=== PATIENT | male | born 1965 | race Caucasian/White ===

== ENCOUNTER 2018-04-10 09:45 | Emergency (ER) | payer OTHER, SELFPAY ==
[2018-04-10 09:49] VITALS: BP 126/75; PULSE 65; RESP 18; O2SAT 98
--- NOTE | 2018-04-10 10:10 | ED.ABDPAIN ---
HPI - Abdominal Pain General Chief Complaint: Abdominal Pain Stated Complaint: PRESSURE ON RECTUM,NUMBNESS ON LEGS Time Seen by Provider: 04/10/18 10:10 Source: patient Mode of arrival: wheelchair Limitations: no limitations History of Present Illness HPI narrative: Patient is a 52-year-old male with a C6 paraplegia here for evaluation of pain and pressure around his rectum. He states this has been going on for the past couple days. He states that a couple days ago he did have an episode of constipation for which he increased his senna and Colace. He does require daily manual disimpaction done by his for bowel regimen. He states that he does have some feeling in his lower extremities. 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 He does have a Holden catheter in place. Does have some vague lower abdominal pain. Did have a ?normal? bowel movement this morning. Related Data Home Medications Medication Instructions Recorded Confirmed Probiotic 1 cap PO BEDTIME 04/10/18 04/10/18 Vitamin C 1 tab PO QNOON 04/10/18 04/10/18 Vitamin D3 1 cap PO QNOON 04/10/18 04/10/18 acetaminophen 1 - 3 tab PO PRN PRN 04/10/18 04/10/18 bisacodyl 2 tab PO BEDTIME 04/10/18 04/10/18 cranberry 1 cap PO TID 04/10/18 04/10/18 docusate sodium 250 mg PO BID 04/10/18 04/10/18 furosemide 20 mg PO BID 04/10/18 04/10/18 ibuprofen [Advil] 200 mg PO Q4-6H PRN 04/10/18 04/10/18 sennosides [senna] 1 tab PO BID 04/10/18 04/10/18 Previous Rx's Medication Instructions Recorded hydrocodone-acetaminophen [Houston] 1 tab PO Q4-6H PRN #7 tab 04/10/18 sucralfate 2 gram MT BID 10 Days #400 ml 04/10/18 Allergies Allergy/AdvReac Type Severity Reaction Status Date / Time No Known Drug Allergies Allergy Verified 04/10/18 09:56 Review of Systems Constitutional Denies fever(s) Cardiovascular Denies chest pain and Denies dyspnea Respiratory Denies dyspnea Gastrointestinal Gastrointestinal: Reports abdominal pain, Reports change in bowel habits and Denies nausea Genitourinary Comments: Holden catheter in place no changes from baseline Musculoskeletal Comments: No changes from his baseline musculoskeletal Integumentary/Breasts Denies rash Neurologic Comments: No changes from baseline neurologic deficiencies PFSH Medical History Cervical vertebral fusion (Acute) Paraplegia (Acute) Social History Smoking Status: Never smoker Comment: Past surgical history consistent with cervical fusion Exam Initial Vital Signs Initial Vital Signs: Vital Signs Pulse Rate 65 04/10/18 09:49 Respiratory Rate 18 04/10/18 09:49 Blood Pressure 126/75 04/10/18 09:49 Pulse Oximetry 98 04/10/18 09:49 Const General: comfortable, well developed and No acute distress Orientation: alert, awake and oriented x3 HENMT Head: normal to inspection and normocephalic Resp Effort & Inspection: normal respiratory effort Cardio Rate: regular rate GI Inspection: non-distended Palpation: soft, No firm and No tender Rectal Exam: abnormal sphincter tone (Decreased sphincter tone), No fecal impaction and heme negative stool Skin Rashes: no rashes Neuro Other: C6 paraplegia. No movement of bilateral lower extremities. He is able to move his upper extremities. This is all unchanged from his baseline neurologic status Extrem Other: Unable to move lower extremities. No gross deformities consistent with fractures Psych Appearance: grossly normal and well kempt Course Orders Ordered: ED Orders 04/10/18 11:02 CT abdomen pelvis w con Stat 04/10/18 11:05 Complete Blood Count AUTO DIFF Stat Comprehensive Metabolic Panel Stat Lipase Stat 04/10/18 11:15 Urine Culture Stat Urine Microscopic Stat Discontinued Medications Hydrocodone Bitart/Acetaminophen ([place] 5/325) 1 tab PO NOW ONE Stop: 04/10/18 13:12 Last Admin: 04/10/18 13:45 Dose: 1 tab Sodium Chloride (Normal Saline 0.9%) 1,000 mls @ 1,000 mls/hr IV BOLUS ONE Stop: 04/10/18 11:30 Last Infusion: 04/10/18 12:51 Dose: 0 mls/hr Admin: 04/10/18 11:32 Dose: 1,000 mls/hr Vital Signs - 8 hr 04/10/18 11:32 04/10/18 14:12 Pulse Rate 60 60 Respiratory Rate 14 14 Blood Pressure [Left Wrist] 135/78 135/92 H Pulse Oximetry 96 97 MDM - Abdominal Pain Lab Data Attestation: I reviewed the patient's lab results. Result diagrams: 04/10/18 11:05 04/10/18 11:05 Lab Results 04/10/18 04/10/18 04/10/18 Range/Units 11:05 11:05 11:15 WBC 7.8 (4.5-11.0) X10^3/uL RBC 5.22 (4.5-5.9) X10^6/uL Hgb 15.8 (13.5-17.5) g/dL Hct 44.9 (41-53) % MCV 85.9 (80-100) fL MCH 30.2 (26-34) PG MCHC 35.2 (30-36) % RDW 14.0 (11.6-14.8) % Plt Count 176 (150-400) X10^3/uL Neut % (Auto) 62.6 (50-75) % Lymph % (Auto) 27.6 (25-40) % Hernando % (Auto) 8.1 (3-14) % Eos % (Auto) 1.2 L (2-4) % Baso % (Auto) 0.5 (0-2) % Neut # (Auto) 4900 (8970-0164) /uL Sodium 143 (137-145) mmol/L Potassium 4.1 (3.4-5.1) mmol/L Chloride 106 (98-107) mmol/L Carbon Dioxide 27 (22-32) mmol/L BUN 10 (9-20) mg/dL Creatinine 0.50 L (0.66-1.25) mg/dL Estimated GFR > 60.0 (>60) mL/min BUN/Creatinine Ratio 20.0 (6-22) Glucose 105 H (70-100) mg/dL Calcium 9.1 (8.4-10.2) mg/dL Total Bilirubin 0.5 (0.2-1.3) mg/dL AST 23 (17-59) IU/L ALT 31 (21-72) IU/L Alkaline Phosphatase 55 (38-126) U/L Total Protein 6.8 (6.3-8.2) g/dL Albumin 4.1 (3.5-5.0) g/dL Globulin 2.7 (1.7-4.1) g/dL Albumin/Globulin Ratio 1.5 (1.0-2.8) Lipase 60 (23-300) U/L Urine RBC 1-5/hpf (0-5/HPF) Urine WBC 5-10/hpf H (0-5/HPF) Ur Squamous Epith Cells None seen Urine Bacteria Many (>30) H (None) Ur Culture Indicated? Specimen cultured Micro UA Comment Not Reportable Point of care testing: Urine Dip Bedside Urine Glucose Negative Bedside Urine Bilirubin - Negative Bedside Urine Ketone - Negative Urine Specific Ferdinand 1.015 Bedside Urine Occult Blood +/- Bedside Urine pH 6.5 Bedside Urine Protein - Negative Bedside Urine Urobilinogen - Negative Bedside Urine Nitrite + Positive Bedside Urine Leukocytes +++ [address] scan - abdomen: Radiologist's impression: PROCEDURE: CT ABDOMEN PELVIS W CON INDICATIONS: ABD pain TECHNIQUE: After the administration of intravenous contrast, 5 mm thick sections acquired from the diaphragm to the symphysis. 5 mm coronal and sagittal reformats were acquired. For radiation dose reduction, the following was used: automated exposure control, adjustment of mA and/or kV according to patient size. COMPARISON: None. FINDINGS: Image quality: Excellent. ABDOMEN: Lung bases: Lung bases are clear. Heart size is mildly enlarged. Solid organs: Liver is normal in size and enhancement. Diffuse fatty infiltration of the liver. Gallbladder is within normal limits. Biliary system is non dilated. Pancreas enhances normally. Partial fatty infiltration the liver is noted. Spleen is normal in size and enhancement. No adrenal nodules. Kidneys demonstrate normal size and enhancement, without hydronephrosis. Mild right perinephric stranding noted. Large 2.5 cm right renal cyst is noted which has a focal coarse calcification along its inferior margin (Bosniak 2F). There is a 5.9 cm simple right peripelvic cyst (Bosniak 1). Peritoneum and bowel: Bowel loops demonstrate normal caliber. Mild circumferential wall thickening involving the rectum. There is mild stranding in the perirectal fat. A few scattered colonic diverticuli are noted without evidence of diverticulitis. No free fluid or air. The appendix is not definitely visualized, however, no free fluid or inflammatory changes are noted adjacent to the cecum. Nodes and vessels: No retroperitoneal or mesenteric adenopathy by size criteria. Aorta and inferior vena cava are normal in size. Miscellaneous: No ventral hernias. PELVIS: Genitourinary: Bladder wall thickness is normal. Holden catheter noted in the basal bladder. Miscellaneous: No inguinal hernias or adenopathy. Bones: No suspicious bony lesions. Large osseous excrescences ON the anterior margin of the left acetabulum and the anterior margin of the proximal left femur possibly related to remote trauma. Fixation hardware noted in the thoracic spine. No vertebral body compression fractures. Spine degenerative disc disease and facet arthropathy. IMPRESSION: 1. Mild circumferential wall thickening involving the rectum with mild adjacent perirectal fat stranding compatible with mild proctitis which be secondary to infectious or neoplastic etiologies. Recommend correlation with physical findings. 2. Bosniak 2F 10.5 cm right renal cyst. Recommend urology consultation. 3. Mild right perinephric stranding. Finding is nonspecific, but can be related to urinary tract infection. Please correlate with clinical and urinalysis today. 4. Colonic diverticulosis without evidence of diverticulitis. 5. No dilated loops of bowel. 6. No free intraperitoneal fluid or air. Dictated by: Sherley Wallace MD, PhD on 04/10/2018 at 11:12 Approved by: Sherley Wallace MD, PhD on 04/10/2018 at 11:25 [facility] Narrative Medical decision making narrative: Difficulty obtaining a good physical exam secondary to his baseline neurologic status. His CT scan of his abdomen does have some concern for a proctitis. This does fit with his symptoms of pressure around his rectum. This could have been caused by the daily manual bowel regimens needed associated with the constipation issues he had a couple days ago. He has an indwelling Holden catheter. Urinalysis is somewhat concerning for urinary tract infection however will hold on any antibiotics for now wait for urine culture to return. Will send patient home with enemas to treat the proctitis. I have some concern that he may not be able to hold the enemas in place given his neurologic status and his decreased rectal tone. I did discuss this with the patient and his . Patient was instructed to call his primary care doctor for follow-up. If his urine culture does come back positive would consider antibiotics after sensitivity report comes back. Patient were given return precautions. They both expressed understanding and agreement with this plan. Discharge Plan Departure Patient Disposition: Home Clinical Impression: Proctitis Discharge Date/Time: 04/10/18 14:49 Interventions: ED Discharge Assessment Last Done: 10/30/18 14:45 Instructions: Constipation Activity Restrictions/Additional Instructions: recommend that you take the Tylenol and Motrin at home for any discomfort. Use the pain medications as needed for breakthrough pain. you will need to buy a Fleet's enema [id number]. Empty all of the medicine out of this and use the bottle to administer the medication that she were given a prescription for today. The pharmacy can call us here at [facility] at [phone] if they have questions about the prescription. Prescriptions: New hydrocodone-acetaminophen [[place]] 5-325 mg tablet 1 tab PO Q4-6H PRN (Reason: pain) Qty: 7 RF: 0 sucralfate 100 mg/mL suspension 2 gram MT BID 10 Days Qty: 400 RF: 0 No Action furosemide 40 mg tablet 20 mg PO BID RF: 0 sennosides [senna] 8.6 mg Tablet 1 tab PO BID RF: 0 acetaminophen 500 mg Tablet 1 - 3 tab PO PRN PRN (Reason: pain) RF: 0 ibuprofen [Advil] 200 mg Tablet 200 mg PO Q4-6H PRN (Reason: pain) RF: 0 bisacodyl 5 mg tablet,delayed release (DR/EC) 2 tab PO BEDTIME RF: 0 docusate sodium 250 mg Capsule 250 mg PO BID RF: 0 Probiotic 1 cap PO BEDTIME RF: 0 Vitamin C 1 tab PO QNOON RF: 0 Vitamin D3 1 cap PO QNOON RF: 0 cranberry 1 cap PO TID RF: 0
--- NOTE | 2018-04-10 11:02 | DI.CT.S_ITS ---
PROCEDURE: CT ABDOMEN PELVIS W CON INDICATIONS: ABD pain TECHNIQUE: After the administration of intravenous contrast, 5 mm thick sections acquired from the diaphragm to the symphysis. 5 mm coronal and sagittal reformats were acquired. For radiation dose reduction, the following was used: automated exposure control, adjustment of mA and/or kV according to patient size. COMPARISON: None. FINDINGS: Image quality: Excellent. ABDOMEN: Lung bases: Lung bases are clear. Heart size is mildly enlarged. Solid organs: Liver is normal in size and enhancement. Diffuse fatty infiltration of the liver. Gallbladder is within normal limits. Biliary system is non dilated. Pancreas enhances normally. Partial fatty infiltration the liver is noted. Spleen is normal in size and enhancement. No adrenal nodules. Kidneys demonstrate normal size and enhancement, without hydronephrosis. Mild right perinephric stranding noted. Large 2.5 cm right renal cyst is noted which has a focal coarse calcification along its inferior margin (Bosniak 2F). There is a 5.9 cm simple right peripelvic cyst (Bosniak 1). Peritoneum and bowel: Bowel loops demonstrate normal caliber. Mild circumferential wall thickening involving the rectum. There is mild stranding in the perirectal fat. A few scattered colonic diverticuli are noted without evidence of diverticulitis. No free fluid or air. The appendix is not definitely visualized, however, no free fluid or inflammatory changes are noted adjacent to the cecum. Nodes and vessels: No retroperitoneal or mesenteric adenopathy by size criteria. Aorta and inferior vena cava are normal in size. Miscellaneous: No ventral hernias. PELVIS: Genitourinary: Bladder wall thickness is normal. Holden catheter noted in the basal bladder. Miscellaneous: No inguinal hernias or adenopathy. Bones: No suspicious bony lesions. Large osseous excrescences ON the anterior margin of the left acetabulum and the anterior margin of the proximal left femur possibly related to remote trauma. Fixation hardware noted in the thoracic spine. No vertebral body compression fractures. Spine degenerative disc disease and facet arthropathy. IMPRESSION: 1. Mild circumferential wall thickening involving the rectum with mild adjacent perirectal fat stranding compatible with mild proctitis which be secondary to infectious or neoplastic etiologies. Recommend correlation with physical findings. 2. Bosniak 2F 10.5 cm right renal cyst. Recommend urology consultation. 3. Mild right perinephric stranding. Finding is nonspecific, but can be related to urinary tract infection. Please correlate with clinical and urinalysis today. 4. Colonic diverticulosis without evidence of diverticulitis. 5. No dilated loops of bowel. 6. No free intraperitoneal fluid or air. Dictated by: Sherley Wallace MD, PhD on 04/10/2018 at 11:12 Approved by: Sherley Wallace MD, PhD on 04/10/2018 at 11:25
[2018-04-10 11:21] LABS: Add Manual Diff / Slide Review NO; Basophils Percent Auto 0.5 % (0-2); Eosinophils Percent Auto 1.2 % (2-4); Hematocrit 44.9 % (41-53); Hemoglobin 15.8 g/dL (13.5-17.5); Lymphocytes Percent Auto 27.6 % (25-40); Mean Corpuscular HGB Conc 35.2 % (30-36); Mean Corpuscular Hemoglobin 30.2 PG (26-34); Mean Corpuscular Volume 85.9 fL (80-100); Monocytes Percent Auto 8.1 % (3-14); Neutrophils Absolute Auto 4900 /uL (3000-5900); Neutrophils Percent Auto 62.6 % (50-75); Platelet Count 176 X10^3/uL (150-400); Red Blood Cell Count 5.22 X10^6/uL (4.5-5.9); White Blood Cell Count 7.8 X10^3/uL (4.5-11.0)
[2018-04-10 11:32] VITALS: BP 135/78; PULSE 60; RESP 14; O2SAT 96
[2018-04-10] MEDS: SODIUM CHLORIDE 0.9% 1,000 ML 1000 ML IV (11:32)
[2018-04-10 11:33] LABS: Alanine Aminotransferase 31 IU/L (21-72); Albumin 4.1 g/dL (3.5-5.0); Albumin Globulin Ratio 1.5 (1.0-2.8); Alkaline Phosphatase 55 U/L (38-126); Aspartate Aminotransferase 23 IU/L (17-59); Bilirubin Total 0.5 mg/dL (0.2-1.3); Blood Urea Nitrogen 10 mg/dL (9-20); Calcium 9.1 mg/dL (8.4-10.2); Carbon Dioxide 27 mmol/L (22-32); Chloride 106 mmol/L (98-107); Estimated Glomerular Filt Rate > 60.0 mL/min (>60); Globulin 2.7 g/dL (1.7-4.1); Glucose 105 mg/dL (70-100); HEMOLYSIS < 15 (0-50); Lipase 60 U/L (23-300); Potassium 4.1 mmol/L (3.4-5.1); Sodium 143 mmol/L (137-145); Total Protein 6.8 g/dL (6.3-8.2)
[2018-04-10 11:34] LABS: Bacteria Urine Many (>30); RBC Urine 1-5/HPF (0-5/HPF); Squamous Epithelial Cell Urine None Seen; WBC Urine 5-10/HPF (0-5/HPF)
[2018-04-10 11:35] LABS: Culture Indicated Urine Specimen Cultured
[2018-04-10] MEDS: HYDROCODONE/ACET 5/325 TABLET 1 TAB PO (13:45)
[2018-04-10 14:12] VITALS: BP 135/92; PULSE 60; RESP 14; O2SAT 97
--- NOTE | 2018-04-13 19:58 | PC.NURSE ---
called pt to provide prescription. cipro 500mg bid po for [address] Katie antonio.
== END 2018-04-10 14:49 | disposition home or self-care (01) ==
PROVIDERS: Emergency Provider Emergency Medicine; Family Provider Physical Medicine & Rehabilitation Spinal Cord Injury Medicine; PCP Physical Medicine & Rehabilitation Spinal Cord Injury Medicine
DX: K62.89 Other specified diseases of anus and rectum (principal)
CPT/HCPCS: 74177; 80053; 81003; 81015; 83690; 85025; 87077; 87086; 87186; 96360; 99283; 99285; Q9967

== ENCOUNTER 2019-11-06 09:46 | Emergency (ER) | payer OTHER, SELFPAY ==
[2019-11-06] VITALS (14 sets, daily range): BP systolic 92–157; BP diastolic 54–87; PULSE 60–73; RESP 12–20; TEMP 36.5; O2SAT 92–98
--- NOTE | 2019-11-06 09:59 | DI.RAD.S_ITS ---
PROCEDURE: XR CHEST 1V INDICATIONS: quadriplegia with abdominal rectal pain TECHNIQUE: One view of the chest was acquired. COMPARISON: None. FINDINGS: Surgical changes and devices: Bilateral spine fixation across the thoracic spine. Lungs and pleura: Lungs are clear. No pleural effusions or pneumothorax. Mediastinum: Mediastinal contours appear normal. Heart size is normal. Bones and chest wall: No suspicious bony lesions. Overlying soft tissues appear unremarkable. IMPRESSION: No pneumonia found. Spine fixation surgery previously performed shows no evidence of device loosening or disruption. Dictated by: Tevin Ying M.D. on 11/06/2019 at 11:01 Approved by: Tevin Ying M.D. on 11/06/2019 at 11:03
--- NOTE | 2019-11-06 09:59 | DI.CT.S_ITS ---
PROCEDURE: CT ABDOMEN PELVIS W CON INDICATIONS: Quadriplegia with abdominal rectal pain TECHNIQUE: After the administration of intravenous contrast, 5 mm thick sections acquired from the diaphragm to the symphysis. 5 mm coronal and sagittal reformats were acquired. For radiation dose reduction, the following was used: automated exposure control, adjustment of mA and/or kV according to patient size. COMPARISON: 04/10/18. FINDINGS: Image quality: Excellent. ABDOMEN: Lung bases: Lung bases are clear. Heart size is normal. Solid organs: Liver is normal in size and enhancement. Gallbladder is unremarkable. Biliary system is non dilated. Pancreas enhances normally. Spleen is normal in size and enhancement. No adrenal nodules. There is no hydronephrosis identified. Slightly increased size of exophytic right upper pole Bosniak 2F renal cysts, previously measuring 11 cm and currently measuring 12 I'm meters, with coarse inferior calcifications. A right peripelvic cyst has also increased in size, previously measuring 5.6 cm and currently measuring 6.3 cm. There is a stone present in the distal right ureter measuring approximately 4 x 7 mm. Reference image 78/3. It does not resultant hydroureter or hydronephrosis. This was not present on the prior study. Peritoneum and bowel: Bowel loops demonstrate normal wall thickness and caliber. No free fluid or air. Mild rectal wall thickening again noted. Nodes and vessels: No retroperitoneal or mesenteric adenopathy by size criteria. Aorta and inferior vena cava are normal in size. Miscellaneous: No ventral hernias. PELVIS: Genitourinary: A Holden catheter it compresses the bladder. Miscellaneous: No inguinal hernias or adenopathy. Bones: No suspicious bony lesions. No vertebral body compression fractures. IMPRESSION: 1. There is a 4 x 7 mm stone in the distal right ureter. There is no associated right hydronephrosis. 2. Slight interval increase in size of Bosniak 2F cyst of the right kidney and slight interval increase in right peripelvic cyst. 3. Mild rectal wall thickening. Dictated by: Sixto Clemons M.D. on 11/06/2019 at 10:51 Approved by: Sixto Clemons M.D. on 11/06/2019 at 10:57
--- NOTE | 2019-11-06 10:05 | ED.ABDPAIN ---
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 The patient has sensation above his nipples but has paralysis in his legs and weakness in both arms. The patient has impeccable care at home. He was checked by nurse Ruvalcaba at his home and sent into the emergency department for further evaluation of his rectal in abdominal pain. The patient has had no recent bowel movements with any rectal suppository. He has a chronic indwelling Holden catheter which was clear and negative at home today. The patient has had some mild chest discomfort but denies any significant fever chills or sweats. He has had no headache cough shortness of breath. He does not feel anything in his abdomen other than he has pressure and discomfort in his abdomen. They had no nausea no vomiting. He has not had a bowel movement in over 24 hours. Related Data Home Medications Medication Instructions Recorded Confirmed acetaminophen 1 - 3 tab PO PRN PRN 04/10/18 11/06/19 docusate sodium 250 mg PO BID 04/10/18 11/06/19 ibuprofen [Advil] 200 mg PO Q4-6H PRN 04/10/18 11/06/19 bisacodyl 5 - 10 mg PO QPM 11/06/19 11/06/19 furosemide 20 mg PO BID 11/06/19 11/06/19 levofloxacin 500 mg PO DAILY 11/06/19 11/06/19 sennosides [senna] 17.2 mg PO BID 11/06/19 11/06/19 trospium 60 mg PO DAILY PRN 11/06/19 11/06/19 Previous Rx's Medication Instructions Recorded oxycodone-acetaminophen [Percocet] 1 tab PO Q8H PRN #12 tab 11/06/19 prochlorperazine maleate 10 mg PO Q6H PRN #12 tab 11/06/19 [Compazine] tamsulosin [Flomax] 0.4 mg PO DAILY #5 cap 11/06/19 Allergies Allergy/AdvReac Type Severity Reaction Status Date / Time No Known Drug Allergies Allergy Verified 11/06/19 10:12 Review of Systems Review of Systems Narrative: REVIEW OF SYSTEMS: CONSTITUTIONAL: No fever chills or sweats NEUROLOGICAL: No headache. He has numbness tingling and paralysis with loss of sensation from his nipples downward. EENT: No sore throat difficulty in swallowing change in vision. CARDIO-PULMONARY: No chest pain cough shortness of breath. HEMOTOLOGICAL: No bruising or bleeding noted. GASTROINTESTINAL: No nausea vomiting diarrhea hematemesis coffee-ground emesis hematochezia melena. GENITAL URINARY: Has a chronic indwelling Holden catheter there with clear urine DERMATOLOGICAL: No skin rash noted Patient History Medical History Cervical vertebral fusion (Acute) Paraplegia (Acute) Social History Smoking Status: Never smoker Smoking Status: Never smoker alcohol intake frequency: 0-2 drinks per day Substance Use Type: does not use Exam Narrative Exam Narrative: PHYSICAL EXAM: CONSTITUTIONAL: Awake, Alert, Oriented, Coherent, Cooperative in NAD. Does not appear toxic or ill. The patient is a quadriplegic and does not move his lower extremities. The patient was moved from the EMS cart to the bed by the team. The patient is moving his arm arms and his hands. HEAD: AT/NC EENT: PERRL, FROM of eyes, no discharge, no nystagmus MOUTH: Has a mask on. NECK: Supple, no obvious JVD, Trachea is midline without stridor, no palpable LN. THORAX: Slightly increased AP diameter no retractions. Sensation above the nipples. No chest wall tenderness in this area. LUNGS: Clear, symmetrical breath sounds without respiratory distress. HEART: Regular rhythm with a grade 2/6 systolic murmur along the left sternal border. Regular rhythm. ABDOMEN: Abdomen is distended tympanitic no tenderness guarding rebound no palpable organomegaly. Rectal exam reveals a lax rectal tone without any tenderness mass blood or stool present. Occult blood tested negative for secretions LYMPHATIC: no palpable spleen. EXTREMITIES: No edema, deformity, tenderness or cyanosis. SKIN: No rash, bruising, petechiae or purpura. NEURO: Awake, alert, oriented, conversive, cranial nerves II-XII are symmetrical , moves his upper arms. Has no sensation below his nipples and does not move his legs. Initial Vital Signs Initial Vital Signs: Vital Signs Temperature 97.7 F 11/06/19 10:00 Pulse Rate 66 11/06/19 10:00 Respiratory Rate 20 11/06/19 10:00 Blood Pressure 156/87 H 11/06/19 10:00 Pulse Oximetry 95 11/06/19 10:00 Course Course Course Narrative: 1155: The patient's CT of the abdomen reveals no evidence of an acute pulmonary emboli no evidence of acute pulmonary process in the chest x-ray and CT of the abdomen shows a large right upper pole renal cyst that is 12 cm in diameter. 1220: Called and discussed the patient with his urologist at [facility] and they state that his 12 cm renal pole cyst is chronic and has been present since 2019. CT scan reveals that the patient also has a 4 x 7 mm stone in the distal right ureter without any associated right hydronephrosis which she should be able to pass. The patient has a slight interval increase in the cyst size of the right kidney and right peripelvic cyst. There is mild rectal wall thickening but no other inflammatory changes. The patient has a chronic indwelling Holden catheter than has a picture that looks like an acute urinary tract infection but it is difficult to say what is chronic and what is colonization from his chronic indwelling Holden catheter. The patient has been treated with Levaquin for an acute urinary tract infection and will be administered 750 mg IV. The patient new development is that he has developed hypoxia on room air with an oxygen saturation of 88% and is not on home oxygen. CT of his chest reveals no acute cardiopulmonary pathology. I will discuss admitting the patient observation status to Dr. Ambrosio. 1324: discussed with Dr. Ambrosio, requested a room air blood gas and call back. 1358: The patient's pH on room air was 7.353, pCO2 is 45.7, PO2 is 93, HC03 is 25.4, total CO2 is 27, oxygen saturations 97%. Sodium 139, potassium 4.0, hematocrit 40, hemoglobin 13.6. Orders Ordered: Discontinued Medications Diazepam (Valium) 2 mg IV NOW ONE Stop: 11/06/19 10:00 Last Admin: 11/06/19 10:31 Dose: Not Given Documented by: LALITA Sodium Chloride (Normal Saline 0.9%) 1,000 mls @ 150 mls/hr IV BOLUS ONE Stop: 11/06/19 16:52 Last Infusion: 11/06/19 15:20 Dose: 0 mls/hr Documented by: Admin: 11/06/19 10:31 Dose: 150 mls/hr Documented by: LALITA Sodium Chloride (Normal Saline 0.9%) 1,000 mls @ 1,000 mls/hr IV BOLUS ONE Stop: 11/06/19 11:25 Last Infusion: 11/06/19 11:25 Dose: 0 mls/hr Documented by: Admin: 11/06/19 10:31 Dose: 1,000 mls/hr Documented by: LALITA Levofloxacin (Levaquin) 750 mg in 150 mls @ 100 mls/hr IV Q48H RACHEL Last Infusion: 11/06/19 14:49 Dose: 0 mls/hr Documented by: Admin: 11/06/19 12:55 Dose: 100 mls/hr Documented by: LALITA Ketorolac Tromethamine (Toradol) 30 mg IV NOW ONE Stop: 11/06/19 13:04 Last Admin: 11/06/19 13:07 Dose: 30 mg Documented by: LALITA Morphine Sulfate (Morphine) 4 mg IV NOW ONE Stop: 11/06/19 10:00 Last Admin: 11/06/19 10:12 Dose: 4 mg Documented by: LALITA Ondansetron HCl (Zofran) 4 mg IV NOW ONE Stop: 11/06/19 10:00 Last Admin: 11/06/19 10:12 Dose: 4 mg Documented by: LALITA Oxycodone/Acetaminophen (Percocet 5/325) 2 tab PO NOW ONE Stop: 11/06/19 14:57 Last Admin: 11/06/19 15:04 Dose: 2 tab Documented by: LALITA Oxycodone/Acetaminophen (Percocet 5/325) 2 tab PO NOW ONE Stop: 11/06/19 14:56 Last Admin: 11/06/19 15:20 Dose: Not Given Documented by: LALITA Tamsulosin HCl (Flomax) 0.4 mg PO NOW ONE Stop: 11/06/19 14:00 Last Admin: 11/06/19 15:03 Dose: 0.4 mg Documented by: LALITA Vital Signs Vital signs: Vital Signs - 8 hr 11/06/19 10:00 11/06/19 10:10 11/06/19 10:15 Temperature 97.7 F Pulse Rate 66 68 68 Respiratory Rate 20 16 13 Blood Pressure 156/87 H Blood Pressure [Right Arm] 107/63 92/54 L Pulse Oximetry 95 93 92 11/06/19 10:20 11/06/19 10:30 11/06/19 10:40 Temperature Pulse Rate 65 65 60 Respiratory Rate 14 12 14 Blood Pressure Blood Pressure [Right Arm] 99/56 L 106/58 L 157/86 H Pulse Oximetry 95 96 96 11/06/19 10:50 11/06/19 11:15 11/06/19 11:20 Temperature Pulse Rate 73 60 70 Respiratory Rate 14 16 14 Blood Pressure Blood Pressure [Right Arm] 97/54 L 113/57 L Pulse Oximetry 95 93 95 11/06/19 11:30 11/06/19 12:00 11/06/19 13:00 Temperature Pulse Rate 63 60 60 Respiratory Rate 19 14 12 Blood Pressure Blood Pressure [Right Arm] 107/58 L 106/55 L 112/64 Pulse Oximetry 98 95 93 MDM - Abdominal Pain Medical Records Attestation: I reviewed the patient's medical records. Lab Data Attestation: I reviewed the patient's lab results. Result diagrams: 11/06/19 10:05 11/06/19 10:05 Labs: Lab Results 11/06/19 11/06/19 11/06/19 Range/Units 10:05 10:05 10:05 WBC 8.3 (4.5-11.0) X10^3/uL RBC 5.40 (4.5-5.9) X10^6/uL Hgb 16.7 (13.5-17.5) g/dL Hct 47.8 (41-53) % MCV 88.5 (80-100) fL MCH 30.9 (26-34) PG MCHC 34.9 (30-36) % RDW 13.7 (11.6-14.8) % Plt Count 159 (150-400) X10^3/uL Neut % (Auto) 61.2 (50-75) % Lymph % (Auto) 29.1 (25-40) % [place] % (Auto) 6.8 (3-14) % Eos % (Auto) 2.4 (2-4) % Baso % (Auto) 0.5 (0-2) % Neut # (Auto) 5100 (7087-0013) /uL Lymph # (Auto) 2400 (4026-9530) /uL [place] # (Auto) 600 (0-900) /uL Eos # (Auto) 200 (0-450) /uL Baso # (Auto) 0 (0-100) /uL ABG pH (7.35-7.45) ABG pCO2 (35-45) mmHg ABG pO2 (80-100) mmHg ABG HCO3 (22-26) mmol/L ABG Total CO2 (21-31) mmol/L ABG O2 Saturation (95-100) % ABG Base Excess (-2-2) mmol/L FiO2 Sodium 138 (137-145) mmol/L Potassium 4.1 (3.4-5.1) mmol/L Chloride 108 H (98-107) mmol/L Carbon Dioxide 22 (22-32) mmol/L BUN 14 (9-20) mg/dL Creatinine 0.37 L (0.66-1.25) mg/dL Estimated GFR > 60.0 (>60) mL/min BUN/Creatinine Ratio 37.8 H (6-22) Glucose 116 H (70-100) mg/dL Lactate 1.3 (0.7-2.1) mmol/L Calcium 9.5 (8.4-10.2) mg/dL Total Bilirubin 0.5 (0.2-1.3) mg/dL AST 20 (17-59) IU/L ALT 19 (<50) IU/L Alkaline Phosphatase 55 (38-126) U/L Lactate Dehydrogenase 328 (313-618) U/L Total Creatine Kinase (55-170) U/L CK-MB (CK-2) CK-MB (CK-2) Rel Index Troponin I (0.01-0.034) ng/mL NT-Pro-B Natriuret Pep (<125) pg/mL Total Protein 7.3 (6.3-8.2) g/dL Albumin 4.2 (3.5-5.0) g/dL Globulin 3.1 (1.7-4.1) g/dL Albumin/Globulin Ratio 1.4 (1.0-2.8) Lipase 95 (23-300) U/L Urine Color Urine Appearance Urine pH (4.5-8.0) Ur Specific [place] (1.000-1.035) Urine Protein (Negative) Urine Glucose (UA) (Negative) g/dL Urine Ketones (NEGATIVE) Urine Occult Blood (Negative) Urine Nitrate (Negative) Urine Bilirubin (NEGATIVE) Urine Urobilinogen (0.2) E.U./dL Ur Leukocyte Esterase (NEGATIVE) Urine RBC (0-5/HPF) Urine WBC (0-5/HPF) Calcium Oxalate Crystal Urine Bacteria (None) Urine Mucus (Negative) Ur Culture Indicated? 11/06/19 11/06/19 11/06/19 Range/Units 10:05 10:45 10:58 WBC (4.5-11.0) X10^3/uL RBC (4.5-5.9) X10^6/uL Hgb (13.5-17.5) g/dL Hct (41-53) % MCV (80-100) fL MCH (26-34) PG MCHC (30-36) % RDW (11.6-14.8) % Plt Count (150-400) X10^3/uL Neut % (Auto) (50-75) % Lymph % (Auto) (25-40) % [place] % (Auto) (3-14) % Eos % (Auto) (2-4) % Baso % (Auto) (0-2) % Neut # (Auto) (8728-8162) /uL Lymph # (Auto) (4808-8272) /uL [place] # (Auto) (0-900) /uL Eos # (Auto) (0-450) /uL Baso # (Auto) (0-100) /uL ABG pH (7.35-7.45) ABG pCO2 (35-45) mmHg ABG pO2 (80-100) mmHg ABG HCO3 (22-26) mmol/L ABG Total CO2 (21-31) mmol/L ABG O2 Saturation (95-100) % ABG Base Excess (-2-2) mmol/L FiO2 Sodium (137-145) mmol/L Potassium (3.4-5.1) mmol/L Chloride (98-107) mmol/L Carbon Dioxide (22-32) mmol/L BUN (9-20) mg/dL Creatinine (0.66-1.25) mg/dL Estimated GFR (>60) mL/min BUN/Creatinine Ratio (6-22) Glucose (70-100) mg/dL Lactate (0.7-2.1) mmol/L Calcium (8.4-10.2) mg/dL Total Bilirubin (0.2-1.3) mg/dL AST (17-59) IU/L ALT (<50) IU/L Alkaline Phosphatase (38-126) U/L Lactate Dehydrogenase (313-618) U/L Total Creatine Kinase 84 (55-170) U/L CK-MB (CK-2) TNP CK-MB (CK-2) Rel Index TNP Troponin I < 0.012 (0.01-0.034) ng/mL NT-Pro-B Natriuret Pep 48 (<125) pg/mL Total Protein (6.3-8.2) g/dL Albumin (3.5-5.0) g/dL Globulin (1.7-4.1) g/dL Albumin/Globulin Ratio (1.0-2.8) Lipase (23-300) U/L Urine Color Yellow Urine Appearance Sl cloudy Urine pH 6.5 (4.5-8.0) Ur Specific [place] 1.010 (1.000-1.035) Urine Protein Negative (Negative) Urine Glucose (UA) Negative (Negative) g/dL Urine Ketones Negative (NEGATIVE) Urine Occult Blood 1+ H (Negative) Urine Nitrate Positive (Negative) Urine Bilirubin Negative (NEGATIVE) Urine Urobilinogen 0.2 (0.2) E.U./dL Ur Leukocyte Esterase 3+ H (NEGATIVE) Urine RBC 1-5/hpf (0-5/HPF) Urine WBC >100/hpf H (0-5/HPF) Calcium Oxalate Crystal Occasional H Urine Bacteria Many (>30) H (None) Urine Mucus 1+ H (Negative) Ur Culture Indicated? Specimen cultured 11/06/19 Range/Units 13:43 WBC (4.5-11.0) X10^3/uL RBC (4.5-5.9) X10^6/uL Hgb (13.5-17.5) g/dL Hct (41-53) % MCV (80-100) fL MCH (26-34) PG MCHC (30-36) % RDW (11.6-14.8) % Plt Count (150-400) X10^3/uL Neut % (Auto) (50-75) % Lymph % (Auto) (25-40) % [place] % (Auto) (3-14) % Eos % (Auto) (2-4) % Baso % (Auto) (0-2) % Neut # (Auto) (2010-6772) /uL Lymph # (Auto) (2842-6746) /uL [place] # (Auto) (0-900) /uL Eos # (Auto) (0-450) /uL Baso # (Auto) (0-100) /uL ABG pH 7.35 (7.35-7.45) ABG pCO2 45.7 H (35-45) mmHg ABG pO2 93 (80-100) mmHg ABG HCO3 25 (22-26) mmol/L ABG Total CO2 27 (21-31) mmol/L ABG O2 Saturation 97 (95-100) % ABG Base Excess 0.0 (-2-2) mmol/L FiO2 21 Sodium (137-145) mmol/L Potassium (3.4-5.1) mmol/L Chloride (98-107) mmol/L Carbon Dioxide (22-32) mmol/L BUN (9-20) mg/dL Creatinine (0.66-1.25) mg/dL Estimated GFR (>60) mL/min BUN/Creatinine Ratio (6-22) Glucose (70-100) mg/dL Lactate (0.7-2.1) mmol/L Calcium (8.4-10.2) mg/dL Total Bilirubin (0.2-1.3) mg/dL AST (17-59) IU/L ALT (<50) IU/L Alkaline Phosphatase (38-126) U/L Lactate Dehydrogenase (313-618) U/L Total Creatine Kinase (55-170) U/L CK-MB (CK-2) CK-MB (CK-2) Rel Index Troponin I (0.01-0.034) ng/mL NT-Pro-B Natriuret Pep (<125) pg/mL Total Protein (6.3-8.2) g/dL Albumin (3.5-5.0) g/dL Globulin (1.7-4.1) g/dL Albumin/Globulin Ratio (1.0-2.8) Lipase (23-300) U/L Urine Color Urine Appearance Urine pH (4.5-8.0) Ur Specific [place] (1.000-1.035) Urine Protein (Negative) Urine Glucose (UA) (Negative) g/dL Urine Ketones (NEGATIVE) Urine Occult Blood (Negative) Urine Nitrate (Negative) Urine Bilirubin (NEGATIVE) Urine Urobilinogen (0.2) E.U./dL Ur Leukocyte Esterase (NEGATIVE) Urine RBC (0-5/HPF) Urine WBC (0-5/HPF) Calcium Oxalate Crystal Urine Bacteria (None) Urine Mucus (Negative) Ur Culture Indicated? ECG Data Attestation: I personally reviewed and interpreted this ECG as follows: Interpretation: His EKG obtained at 9:55 a.m.: 2 a reveals a sinus rhythm with a ventricular rate of 61. Intervals are normal. QRS duration is 92 milliseconds. QTC is normal at 413 milliseconds axis is normal. The patient has inverted T-waves in leads wall I and aVL suggestive of lateral wall ischemia. T-wave in lead V1 is flat. The rest of the T-waves are nonspecific. There are no other acute diagnostic ST or T-wave changes to suggest infarct. Discharge Plan Departure Patient Disposition: Home Clinical Impression: Quadriplegia, Pain, rectal, Colic, ureteral, Ureterolithiasis, Renal cyst Abdominal pain Qualifiers: Abdominal location: unspecified location Qualified Code(s): R10.9 - Unspecified abdominal pain Discharge Date/Time: 11/06/19 15:26 Instructions: DI for Kidney Stones, DI for Abdominal Pain-Adult Activity Restrictions/Additional Instructions: 1. Follow-up with your urologist in [facility] for your kidney stone and renal cyst. 2. Continue the Levaquin as prescribed. 3. Use the Flomax 1 tablet per day for the next 5 days for the kidney stone. 4. For intolerable pain and discomfort use the Percocet 7.5 mg 1 tablet 3 times a day as needed for pain and discomfort. 5. Take the compazine as needed for nausea and vomiting. 6. Over the next 3 days try and drink at least 2 to possibly 3 L of fluid per day to keep yourself hydrated. 7. If you develop chest pain, worsening shortness of breath, racing of your heart, intolerable pain or discomfort, fever, you need to return to the emergency department to be re-evaluated. Prescriptions: New oxycodone-acetaminophen [Percocet] 7.5-325 mg tablet 1 tab PO Q8H PRN (Reason: pain) Qty: 12 RF: 0 prochlorperazine maleate [Compazine] 10 mg tablet 10 mg PO Q6H PRN (Reason: nausea and vomiting) Qty: 12 RF: 0 tamsulosin [Flomax] 0.4 mg capsule 0.4 mg PO DAILY Qty: 5 RF: 0 No Action acetaminophen 500 mg Tablet 1 - 3 tab PO PRN PRN (Reason: pain) RF: 0 ibuprofen [Advil] 200 mg Tablet 200 mg PO Q4-6H PRN (Reason: pain) RF: 0 docusate sodium 250 mg Capsule 250 mg PO BID RF: 0 sennosides [senna] 8.6 mg tablet 17.2 mg PO BID RF: 0 levofloxacin 500 mg tablet 500 mg PO DAILY RF: 0 trospium 60 mg capsule,extended release 24hr 60 mg PO DAILY PRN (Reason: Bladder Spasms) RF: 0 furosemide 40 mg tablet 20 mg PO BID RF: 0 bisacodyl 5 mg tablet,delayed release (DR/EC) 5 - 10 mg PO QPM RF: 0 Referrals: Lizzy Solomon MD [Family Provider] -
[2019-11-06] MEDS: ONDANSETRON 4 MG/2 ML INJ IV (10:12)
[2019-11-06] MEDS: MORPHINE 4 MG/ML INJ IV (10:12)
[2019-11-06 10:23] LABS: Add Manual Diff / Slide Review NO; Basophils Absolute Auto 0 /uL (0-100); Basophils Percent Auto 0.5 % (0-2); Eosinophils Absolute Auto 200 /uL (0-450); Eosinophils Percent Auto 2.4 % (2-4); Hematocrit 47.8 % (41-53); Hemoglobin 16.7 g/dL (13.5-17.5); Lymphocytes Absolute Auto 2400 /uL (1100-4500); Lymphocytes Percent Auto 29.1 % (25-40); Mean Corpuscular HGB Conc 34.9 % (30-36); Mean Corpuscular Hemoglobin 30.9 PG (26-34); Mean Corpuscular Volume 88.5 fL (80-100); Monocytes Absolute Auto 600 /uL (0-900); Monocytes Percent Auto 6.8 % (3-14); Neutrophils Absolute Auto 5100 /uL (1500-7000); Neutrophils Percent Auto 61.2 % (50-75); Platelet Count 159 X10^3/uL (150-400); Red Cell Distribution Width 13.7 % (11.6-14.8); White Blood Cell Count 8.3 X10^3/uL (4.5-11.0)
--- NOTE | 2019-11-06 10:28 | DI.CT.S_ITS ---
PROCEDURE: CT ANGIO CHEST PE PROTOCOL INDICATIONS: PE protocol, decreased sat, abd pain, pt is quad. TECHNIQUE: After the administration of intravenous contrast, 2 mm thick sections acquired from the pulmonary apices to the posterior costophrenic angles. 3-dimensional maximum intensity projection (MIP) coronal and sagittal reformats were then acquired through the thorax. For radiation dose reduction, the following was used: automated exposure control, adjustment of mA and/or kV according to patient size. COMPARISON: None. FINDINGS: Image quality: Excellent. Pulmonary arteries: Pulmonary arteries are normal in size, and demonstrate no intraluminal filling defects to suggest central pulmonary embolism. Lungs and pleura: Lungs are clear. No pleural effusions or pneumothorax. Central and peripheral airways are patent. Mediastinum: Heart size is normal, without pericardial effusion. No mediastinal or hilar adenopathy. Thoracic aorta is normal in caliber and enhancement. Esophagus is normal in caliber, without hiatal hernia. Bones and chest wall: No suspicious bony lesions. Ribs and thoracic spine appear intact throughout. Thyroid gland is unremarkable. No axillary or supraclavicular adenopathy. Extensive multilevel remote posterior lateral zhen and pedicle screw fixation extending from the upper through mid thoracic region. Abdomen: Visualized upper abdominal solid organs appear normal in the early arterial phase of enhancement. Large right upper pole renal cyst measuring approximately 12 cm in diameter. IMPRESSION: 1. No evidence acute pulmonary emboli. 2. No evidence acute pulmonary process. 3. Large right upper pole renal cyst noted. Dictated by: Sixto Clemons M.D. on 11/06/2019 at 10:19 Approved by: Sixto Clemons M.D. on 11/06/2019 at 10:22
[2019-11-06] MEDS: SODIUM CHLORIDE 0.9% 1,000 ML 150 ML IV (10:31)
[2019-11-06] MEDS: SODIUM CHLORIDE 0.9% 1,000 ML 1000 ML IV (10:31)
[2019-11-06 10:33] LABS: Lactate (Lactic Acid) 1.3 mmol/L (0.7-2.1)
[2019-11-06 10:34] LABS: Alanine Aminotransferase 19 IU/L (<50); Albumin 4.2 g/dL (3.5-5.0); Albumin Globulin Ratio 1.4 (1.0-2.8); Alkaline Phosphatase 55 U/L (38-126); Aspartate Aminotransferase 20 IU/L (17-59); BUN Creatinine Ratio 37.8 (6-22); Bilirubin Total 0.5 mg/dL (0.2-1.3); Blood Urea Nitrogen 14 mg/dL (9-20); Calcium 9.5 mg/dL (8.4-10.2); Carbon Dioxide 22 mmol/L (22-32); Chloride 108 mmol/L (98-107); Estimated Glomerular Filt Rate > 60.0 mL/min (>60); Globulin 3.1 g/dL (1.7-4.1); Glucose 116 mg/dL (70-100); HEMOLYSIS < 15 (0-50); Lactate Dehydrogenase 328 U/L (313-618); Lipase 95 U/L (23-300); Potassium 4.1 mmol/L (3.4-5.1); Sodium 138 mmol/L (137-145); Total Protein 7.3 g/dL (6.3-8.2)
[2019-11-06 11:03] LABS: Appearance Urine UA SL CLOUDY; Bilirubin Urine UA NEGATIVE (NEGATIVE); Color Urine UA YELLOW; Glucose Urine UA NEGATIVE (Negative); Ketones Urine UA NEGATIVE (NEGATIVE); Leukocyte Esterase Urine UA 3+ (NEGATIVE); Nitrite Urine UA POSITIVE (Negative); Occult Blood Urine UA 1+ (Negative); Protein Urine UA NEGATIVE (Negative); Urobilinogen Urine UA 0.2 E.U./dL (0.2); pH Urine UA 6.5 (4.5-8.0)
[2019-11-06 11:09] LABS: Creatine Kinase 84 U/L (55-170)
[2019-11-06 11:22] LABS: Troponin I < 0.012 ng/mL (0.01-0.034)
[2019-11-06 11:23] LABS: RBC Urine 1-5/HPF (0-5/HPF); WBC Urine >100/HPF (0-5/HPF)
[2019-11-06 11:24] LABS: Bacteria Urine Many (>30); Calcium Oxalate Crystals Urine Occasional; Culture Indicated Urine Specimen Cultured; Mucus Urine 1+ (Negative)
[2019-11-06] MEDS: MORPHINE 2 MG/ML INJ (11:26)
[2019-11-06 12:48] LABS: NT-proBNP (BNP-Adult 18+) 48 pg/mL (<125)
[2019-11-06] MEDS: levoFLOXacin 750 MG/150 ML PIGGYBACK 100 MG IV (12:55)
[2019-11-06] MEDS: KETOROLAC 60 MG/2 ML VIAL 30 MG IV (13:07)
[2019-11-06 13:53] LABS: pH ABG 7.35 (7.35-7.45)
[2019-11-06 13:54] LABS: Fractionated Inspired Oxygen 21; HCO3 ABG 25 mmol/L (22-26); Oxygen Saturation ABG 97 % (95-100); PCO2 ABG 45.7 mmHg (35-45); PO2 ABG 93 mmHg (80-100); TCO2 ABG 27 mmol/L (21-31)
[2019-11-06] MEDS: MORPHINE 4 MG/ML INJ (14:09)
[2019-11-06] MEDS: TAMSULOSIN 0.4 MG CAPSULE PO (15:03)
[2019-11-06] MEDS: OXYCODONE/ACETAMINOPHEN 5/325 TABLET 2 TAB PO (15:04)
== END 2019-11-06 15:26 | disposition home or self-care (01) ==
PROVIDERS: Emergency Provider Emergency Medicine; Family Provider Physical Medicine & Rehabilitation Spinal Cord Injury Medicine; PCP Family Medicine; Referring Provider Emergency Medicine
DX: N20.1 Calculus of ureter (principal); N28.1 Cyst of kidney, acquired; R10.9 Unspecified abdominal pain; K62.89 Other specified diseases of anus and rectum; S14.109A Unspecified injury at unspecified level of cervical spinal cord, initial encounter; G82.50 Quadriplegia, unspecified
CPT/HCPCS: 36600; 71045; 71275; 74177; 80053; 81001; 82550; 82805; 83605; 83615; 83690; 83880; 84484; 85025; 87040; 87077; 87086; 87147; 87186; 93005; 96361; 96365; 96366; 96375; 96376; 99285; J1885; J1956; J2270; J2405; J3360; Q9967

== ENCOUNTER → 2021-10-18 11:06 | Outpatient (CLI) | payer OTHER, SELFPAY ==
--- NOTE | 2021-10-18 11:10 | DI.CT.S_ITS ---
PROCEDURE: CT ABDOMEN PELVIS WO CON INDICATIONS: Calculus of kidney TECHNIQUE: Axial sections were acquired from the lung bases to the pubic symphysis. Coronal and sagittal reformats were performed. For radiation dose reduction, the following was used: automated exposure control, adjustment of mA and/or kV according to patient size. COMPARISON: [facility], CT, CT ABDOMEN PELVIS W CON, 04/10/2018, 11:31. Outside Film, CR, XR ABDOMEN 1 VIEW, 04/06/2021, 10:18. Outside Film, CT, CT ABDOMEN PELVIS WITH CONTRAST, 08/05/2020, 11:09. Outside Film, CT, CT ABDOMEN PELVIS WITHOUT CONTRAST, 08/09/2020, 3:31. [facility], CT, CT ABDOMEN WITH CONTRAST, 10/21/2020, 17:00. FINDINGS: Image quality: Excellent. Lung bases: Bibasilar dependent atelectasis.. Heart: No significant findings. URINARY: Right Kidney: There is a 2.0 x 2.5 cm exophytic nodule with central lucency. Previously, there was a 5.5 cm abscess with a percutaneous surgical drain on 10/21/2020. The surgical drain has been removed. Tiny 1 mm stones may be present in right kidney. There is mild right hydronephrosis. Right Ureter: No hydroureter. Left Kidney: No stones or hydronephrosis. Vascular calcification noted consistent with atherosclerosis. Left Ureter: No ureteral stone or hydroureter. Bladder: Bladder wall is mildly thickened along the left lateral wall. There is a Holden catheter within the bladder lumen. ABDOMEN: Liver: Normal size. Mild hepatic steatosis. There is a 1.5 cm lucency in the inferior liver, probably a cyst. Gallbladder: Unremarkable. Biliary ducts: Unremarkable. Pancreas: Unremarkable. Spleen: Unremarkable. Adrenal Glands: Unremarkable. Stomach and Bowel: Stomach, small bowel loops, and colon are normal in caliber. Diverticulosis without diverticulitis. Peritoneum: No abnormal intraperitoneal fluid. No free air. Ventral Wall: No hernia. Abdominal Nodes: No enlarged retroperitoneal or mesenteric lymph nodes. Vessels: Aorta and inferior vena cava are normal in size. PELVIS: Pelvic Organs: Unremarkable. Pelvic Nodes: Unremarkable. Miscellaneous: No inguinal hernias are seen. Bones: There is mild chronic compression fracture of L1. Degenerative changes in the lower lumbar spine. Mild degenerative disc disease and facet arthropathy. IMPRESSION: 1. A 2.0 x 2.5 cm exophytic fluid collection in the superior pole of the right kidney. The percutaneous drain has been removed. 2. Tiny nonobstructive 1 mm nonobstructive stones are suspected in right kidney. Mild right hydronephrosis is present. No obstructive stones or masses are seen on CT. 3. Mild bladder wall thickening involving the left bladder wall. Bladder is not fully distended. There is a Holden catheter in the bladder. Dictated by: Brooklyn Petersen M.D. on 10/18/2021 at 12:52 Approved by: Brooklyn Petersen M.D. on 10/18/2021 at 14:45
== END ==
PROVIDERS: Family Provider Physical Medicine & Rehabilitation Spinal Cord Injury Medicine; PCP Physician Assistant Medical; Referring Provider Urology; Visit Provider Urology
DX: N20.0 Calculus of kidney (principal); N13.30 Unspecified hydronephrosis
CPT/HCPCS: 74176

== ENCOUNTER → 2022-06-23 12:12 | Outpatient (CLI) | payer OTHER, SELFPAY ==
--- NOTE | 2022-06-23 12:13 | DI.US.S_ITS ---
PROCEDURE: US RENAL COMPLETE INDICATIONS: CALCULUS OF KIDNEY TECHNIQUE: Real-time scanning was performed of the kidneys and bladder, with image documentation. COMPARISON: [facility], CT, CT ABDOMEN PELVIS WO CON, 10/18/2021, 11:16. FINDINGS: Kidneys: Kidneys are normal in size. Right kidney measures 12.7 cm long; left kidney measures 11.9 cm long. Right renal cortical thickness is 0.9 cm; left renal cortical thickness is 0.9 cm. Renal cortical echotexture is normal. No suspicious solid mass lesions seen. Mild right hydronephrosis. Bladder: Decompressed with Holden catheter. Not well evaluated. Miscellaneous: No free pelvic fluid. IMPRESSION: Limited exam due to acoustic windows and body habitus. Mild right hydronephrosis versus is extrarenal pelvis. Follow-up CT KUB could be considered for further evaluation. Dictated by: Stefan Herrera M.D. on 06/23/2022 at 17:29 Approved by: Stefan Herrera M.D. on 06/23/2022 at 17:32
== END ==
PROVIDERS: Family Provider Physical Medicine & Rehabilitation Spinal Cord Injury Medicine; PCP Physician Assistant Medical; Referring Provider Urology; Visit Provider Urology
DX: N20.0 Calculus of kidney (principal)
CPT/HCPCS: 76770

== ENCOUNTER → 2023-03-07 11:59 | Outpatient (CLI) | payer OTHER, SELFPAY ==
--- NOTE | 2023-03-07 | DI.CT.S_ITS ---
PROCEDURE: CT ABDOMEN PELVIS WO CON INDICATIONS: Calculus of kidney TECHNIQUE: Noncontrast 5 mm thick sections acquired from the diaphragms to the symphysis. 5 mm coronal and sagittal reformats were then performed. For radiation dose reduction, the following was used: automated exposure control, adjustment of mA and/or kV according to patient size. COMPARISON: [facility], CT, CT ABDOMEN PELVIS WO CON, 10/18/2021, 11:16. CT 10/21/2020 FINDINGS: Image quality: Good Lower chest: Basal scarring/atelectasis. There are valvular and annular calcifications of the heart. No hiatal hernia. Solid organs: Subcentimeter lesions are too small to characterize in the liver, unchanged. Gallbladder sludge versus tiny stones. Moderate fatty parenchymal atrophy of the pancreas. No pathologic biliary ductal dilation or pancreatic ductal dilation. No splenomegaly. No adrenal nodules. Mild hepatic steatosis. Compared to October of 2021, the region in the right superior renal pole measuring 2.1 x 1.9 centimeters is stable. There is persistent right mild pelvocaliectasis and periureteral fat stranding. No obstructing calculus is identified. No obstructing calcified stone bilaterally. No left hydronephrosis. Mild urothelial thickening of the right renal pelvis. A calcification near the left superior pole is favored to be vascular in etiology. Vessels and lymph nodes: No pathologic adenopathy by size criteria. No abdominal aortic aneurysm. Atherosclerotic calcifications are present. Bowel and peritoneum: No bowel obstruction. No evidence of pathologic ascites or drainable abscess. Body wall: Unremarkable Pelvis: Holden is in place. Under distended bladder, limiting evaluation Bones: Similar appearance of heterotopic ossification around the left hip and upper femur. There is associated muscular atrophy. There also degenerative changes throughout the axial skeleton. IMPRESSION: Persistent mild right pelvocaliectasis with mild urothelial thickening and peripelvic periureteral fat stranding. No obstructing stone is identified. Findings are relatively unchanged compared to 2021. The region the right superior pole is also stable, previously with a drain in 2020. This is a limited noncontrast CT. Other findings as above. Dictated by: Paco Barber M.D. on 03/07/2023 at 16:34 Approved by: Paco Barber M.D. on 03/07/2023 at 16:42
== END ==
PROVIDERS: Family Provider Physical Medicine & Rehabilitation Spinal Cord Injury Medicine; PCP Physician Assistant Medical; Referring Provider Urology; Visit Provider Urology
DX: N20.0 Calculus of kidney (principal); K76.0 Fatty (change of) liver, not elsewhere classified
CPT/HCPCS: 74176

== ENCOUNTER → 2023-10-12 14:18 | Outpatient (CLI) | payer OTHER, SELFPAY ==
--- NOTE | 2023-10-12 14:25 | DI.CT.S_ITS ---
PROCEDURE: CT ANGIO CHEST INDICATIONS: SUSPECTED ANEURYSM SUSPECTED TECHNIQUE: After the administration of intravenous contrast, 2.5 mm thick sections acquired from the lung apices to the posterior lung bases. Maximum intensity projection (MIP) oblique sagittal reformats were then acquired parallel to the aortic arch. For radiation dose reduction, the following was used: automated exposure control. COMPARISON: [facility], CT, CT ANGIO CHEST PE PROTOCOL, 11/06/2019, 10:52. FINDINGS: Image quality: There is artifact associated with the metallic hardware. Aorta: The ascending thoracic aorta measures 4.3 cm transversely on coronal imaging. (On the 2019 examination, the aorta measures 4.5 cm, when measured in a similar fashion.) The aortic arch measures within normal limits at 2.6 cm. The descending thoracic aorta demonstrates normal caliber. No findings of dissection can be seen. No mural irregularity or contrast extravasation to suggest aortic injury. Lower Neck: No enlarged lymph nodes. Thyroid: No thyroid nodules which require sonographic follow up, per consensus guidelines. Axillae: No enlarged lymph nodes. Chest Wall: Unremarkable. Bones: Extensive spinal fixation hardware is seen. Lungs and Pleura: No pneumothorax or pleural effusions. No consolidation or suspicious nodules. Heart: Heart size is normal. No pericardial effusion. Thoracic Vessels: Pulmonary arteries demonstrate normal size. Mediastinum and Tammy: No enlarged lymph nodes. Esophagus: No wall thickening. No hiatal hernia. Upper Abdomen: An enlarged, fatty infiltrated liver can be seen. The visualized portions of the upper abdominal structures are otherwise unremarkable for imaging technique. IMPRESSION: There is a minimal ascending thoracic aortic aneurysm seen, 4.2 cm, which is not increased in size compared to 2019. No acute arterial abnormality is seen. Additional findings: Extensive spinal fixation hardware Enlarged, fatty infiltrated liver Dictated by: Juan Luis Ridley M.D. on 10/12/2023 at 16:29 Approved by: Juan Luis Ridley M.D. on 10/12/2023 at 16:32
[2023-10-12 14:48] LABS: Estimated Glomerular Filt Rate > 60 mL/min (>60)
== END ==
PROVIDERS: Radiology Diagnostic Radiology; Family Provider Physical Medicine & Rehabilitation Spinal Cord Injury Medicine; PCP Physician Assistant Medical; Referring Provider Internal Medicine Cardiovascular Disease; Visit Provider Internal Medicine Cardiovascular Disease
DX: I77.810 Thoracic aortic ectasia (principal); M43.22 Fusion of spine, cervical region; K76.0 Fatty (change of) liver, not elsewhere classified; Z98.1 Arthrodesis status
CPT/HCPCS: 36415; 71275; 82565; Q9967

== ENCOUNTER → 2024-06-03 10:19 | Outpatient (CLI) | payer BC, SELFPAY ==
--- NOTE | 2024-06-03 10:22 | DI.ECHO.S_ITS ---
[facility] : : [id number] : [place] : : [id number] : : Phone: [phone] Echocardiogram Report + + :Name: RAUL PORTILLO Study Date: 06/03/2024 Height: 72 in : :[facility] ReadingLocation: Weight: 260 lb : : Gender: Male BSA: 2.4 m2 : :: 1965 Age: 58 yrs BP: 131/84 mmHg: :Reason For Study: AORTIC VALVE STENOSIS : :Ordering Physician: MILAGROS, : :KARISSA Wilson Performed By: Brian Junior : :Referring: KARISSA CHAU : + + Interpretation Summary There is moderate asymmetric left ventricular hypertrophy. The ejection fraction is estimated to be 60-65%. Diastolic parameters suggest probable normal left ventricular diastolic function and normal filling pressures. The right ventricle is normal in size and function. There is moderate aortic stenosis. Pulmonary artery pressures cannot be estimated because of the lack of a measurable TR jet velocity. The ascending aorta is mildly enlarged, 4.4 cm. Compared to the prior study dated 08/13/2020, the aortic valve stenosis has progressed based on the indexed KOFI and dimensionless index. Procedure: A two-dimensional transthoracic echocardiogram with color flow and Doppler was performed. The study quality was technically difficult. Comparison is made with the echocardiogram of 08/13/2020. The patient was in normal sinus rhythm during the exam. Left Ventricle: The left ventricle is normal in size. There is moderate asymmetric left ventricular hypertrophy. There is no ventricular septal defect visualized. The ejection fraction is estimated to be 60-65%. There are no focal wall motion abnormalities. Diastolic parameters suggest probable normal left ventricular diastolic function and normal filling pressures. Right Ventricle: The right ventricle is normal in size and function. Atria: The left atrial size is normal. Right atrial size is normal. There is no Doppler evidence for an interatrial shunt. Mitral Valve: There is mild mitral annular calcification. The mitral valve leaflets appear normal. There is no evidence of stenosis, fluttering, or prolapse. There is no mitral regurgitation noted. Aortic Valve: The aortic valve is trileaflet. There is moderate aortic valve sclerosis. There is moderate aortic stenosis. The peak aortic velocity is 2.8 m/sec. The aortic valve mean gradient is 18 mmHg. The indexed KOFI by VTI is 0.67. The dimensionless index is 0.41. Stroke-volume index is 39.6 mL/mA?. There is mild aortic regurgitation. Tricuspid Valve: The tricuspid valve is not well visualized, but is grossly normal. No tricuspid regurgitation. Pulmonary artery pressures cannot be estimated because of the lack of a measurable TR jet velocity. Pulmonic Valve: The pulmonic valve is not well seen, but is grossly normal. There is no pulmonic valvular regurgitation. Great Vessels: The aortic root is moderately dilated. The ascending aorta is mildly enlarged. The pulmonary artery is normal size. The inferior vena cava was not visualized. Pericardium/ Pleura There is no pericardial effusion. MMode/2D Measurements & Calculations LVIDd: 4.2 cm LVOT diam: 2.2 cm LVIDs: 2.8 cm Ao root diam: 4.6 cm FS: 34.0 % asc Aorta Diam: 4.4 cm EPSS: 0.58 cm IVSd: 1.7 cm LVPWd: 1.2 cm LV ross. diameter/BSA (cm/m^2): 1.8 LV sys. diameter/BSA (cm/m^2): 1.2 LA A2 area: 16.9 cm2 RA long axis: 4.8 cm LA A4 area: 15.9 cm2 RA area: 10.4 cm2 LA length (vol): 5.1 cm RA vol: 19.4 ml LA vol: 44.3 ml RA : 8.2 ml/m2 LA vol index: 18.6 ml/m2 RVD1 (basal): 2.5 cm RVD2 (mid): 2.1 cm Doppler Measurements & Calculations Ao V2 max: 275.8 cm/sec LVOT Max Aren: 114.8 cm/sec Ao V2 mean: 198.6 cm/sec LV V1 max P.3 mmHg Ao max P.4 mmHg LV V1 VTI: 25.4 cm Ao mean P.0 mmHg KOFI(I,D): 1.6 cm2 Ao V2 VTI: 60.5 cm KOFI(V,D): 1.6 cm2 sev ratio: 0.42 KOFI indexed to BSA (cm^2/m^2): 0.68 MV E max aren: 43.7 cm/sec PA V2 max: 50.6 cm/sec MV A max aren: 60.4 cm/sec PA V2 mean: 36.4 cm/sec MV E/A: 0.72 PA mean P.57 mmHg Med Peak E' Aren: 3.1 cm/sec PA pr(Accel): 20.8 mmHg E/E' med: 14.0 Lat Peak E' Aren: 3.8 cm/sec E/E' lat: 11.4 E/e' average: 12.7 MV dec time: 0.29 sec SV(OT): 97.5 ml Reading Physician:04:[id number] PM
== END ==
PROVIDERS: Family Provider Physical Medicine & Rehabilitation Spinal Cord Injury Medicine; PCP Physician Assistant Medical; Referring Provider Internal Medicine Cardiovascular Disease; Visit Provider Internal Medicine Cardiovascular Disease
DX: I34.81 Nonrheumatic mitral (valve) annulus calcification (principal); I35.2 Nonrheumatic aortic (valve) stenosis with insufficiency; I77.89 Other specified disorders of arteries and arterioles; I77.810 Thoracic aortic ectasia
CPT/HCPCS: 93306

== ENCOUNTER → 2024-08-27 11:54 | Outpatient (CLI) | payer OTHER, SELFPAY ==
--- NOTE | 2024-08-27 11:56 | DI.US.S_ITS ---
PROCEDURE: US RENAL COMPLETE INDICATIONS: NEUROGENIC BLADDER TECHNIQUE: Real-time scanning was performed of the kidneys and bladder, with image documentation. COMPARISON: [facility], CT, CT ABDOMEN PELVIS WO CON, 03/07/2023, 12:04. [facility], US, US RENAL COMPLETE, 06/23/2022, 12:26. FINDINGS: Kidneys: Kidneys are normal in size. Right kidney measures 11.1 cm long; left kidney measures 13.6 cm long. Right renal cortical thickness is 1.3 cm; left renal cortical thickness is 1.6 cm. Renal cortical echotexture is normal. Mild right pelviectasis is redemonstrated. No hydronephrosis or nephrolithiasis. No suspicious solid mass lesions. Lesions seen at the superior pole the right kidney on prior CT is not appreciated on current exam, may be secondary to limited views of the superior pole. Bladder: Pre-void bladder volume is 48 mL. Post-void residual not obtained as patient self caths. Pre-void images demonstrate no intraluminal masses or stones. On pre-void images, neither ureteral jets are noted with color Doppler interrogation. (Of note, ureteral jets may not be detectable in up to 25% of cases due to insufficient differences in specific gravity between ureteral and bladder urine). Miscellaneous: No free pelvic fluid. Spleen is prominent measuring 14.8 cm. Hepatic steatosis and hepatomegaly. IMPRESSION: Bladder appears grossly within normal limits. Postvoid residual was not obtained as patient self caths. Mild right pelviectasis is redemonstrated. Lesions seen in the superior pole of the right kidney on prior CT is not appreciated on current exam, likely secondary to limited views of the superior pole of the kidney. Incidental note of splenomegaly, hepatic steatosis and hepatomegaly. Dictated by: Glenn Terrazas M.D. on 08/27/2024 at 17:52 Approved by: Glenn Terrazas M.D. on 08/27/2024 at 17:55
== END ==
PROVIDERS: Family Provider Physical Medicine & Rehabilitation Spinal Cord Injury Medicine; PCP Physician Assistant Medical; Referring Provider Physical Medicine & Rehabilitation Spinal Cord Injury Medicine; Visit Provider Physical Medicine & Rehabilitation Spinal Cord Injury Medicine
DX: N31.9 Neuromuscular dysfunction of bladder, unspecified (principal); K76.0 Fatty (change of) liver, not elsewhere classified; R16.2 Hepatomegaly with splenomegaly, not elsewhere classified; N28.9 Disorder of kidney and ureter, unspecified
CPT/HCPCS: 76770

== ENCOUNTER 2024-10-24 09:57 | Emergency (ER) | payer BC, SELFPAY ==
[2024-10-24 10:07] VITALS: BP 92/53; PULSE 72; RESP 14; TEMP 36.3; O2SAT 97; BMI 35.2
[2024-10-24 10:34] LABS: Appearance Urine UA SL CLOUDY; Bilirubin Urine UA NEGATIVE (NEGATIVE); Color Urine UA YELLOW; Glucose Urine UA NEGATIVE (Negative); Ketones Urine UA NEGATIVE (NEGATIVE); Leukocyte Esterase Urine UA 2+ (NEGATIVE); Nitrite Urine UA POSITIVE (Negative); Occult Blood Urine UA 3+ (Negative); Protein Urine UA 2+ (Negative); Specific Gravity Urine UA 1.025 (1.000-1.035); Urine Volume 10mL (spun); Urobilinogen Urine UA 0.2 E.U./dL (0.2)
[2024-10-24 10:39] LABS: Bacteria Urine Many (>30); RBC Urine 10-30/HPF (0-5/HPF); WBC Urine 10-30/HPF (0-5/HPF)
[2024-10-24 10:40] LABS: Culture Indicated Urine Specimen Cultured; Squamous Epithelial Cell Urine None Seen (0-5/HPF)
[2024-10-24 12:21] VITALS: BP 85/50; PULSE 70; RESP 18; TEMP 36.9; O2SAT 97
--- NOTE | 2024-10-24 12:44 | ED.MALEGU ---
HPI - Male Genitourinary <Alyssia Foster PA-C - Last Filed: 10/24/24 14:31> General Chief complaint: Urogenital-Male Stated complaint: Possible UTI Time Seen by Provider: 10/24/24 11:17 Mode of arrival: Wheelchair History of Present Illness HPI Narrative: Mr. 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 Patient states it has been over a year since he had a urinary tract infection, he is unable to feel sensation from the chest down however he has been feeling the sensation of some tingling/discomfort with urination which feels similar to when he had UTIs in the past. He denies any obvious changes in the color or odor of his urine. He has a chronic indwelling Holden catheter that is changed by his every 2 weeks on Monday, it was last changed 1 week ago. He follows with urologist Dr. Diamond in [facility], when he called and told him about his symptoms he ordered an outpatient renal ultrasound to be performed in a few days as he was concerned for a possible kidney stone. Patient reports feeling normal otherwise, no fevers, chills, chest pain, shortness of breath, constipation, diarrhea. He is here with his caregiver who denies any changes. His blood pressure is lower than normal currently. Related Data Home Medications Medication Instructions Recorded Confirmed docusate sodium 250 mg capsule 250 mg PO BID 04/10/18 09/06/24 bisacodyl 5 mg tablet,delayed 5 - 10 mg PO QPM 11/06/19 09/06/24 release sennosides 8.6 mg tablet (senna) 17.2 mg PO BID 11/06/19 09/06/24 trospium 60 mg capsule,extended 60 mg PO DAILY PRN Bladder Spasms 11/06/19 09/06/24 release 24 hr cranberry 500 mg capsule 1,000 mg PO BID 09/06/24 09/06/24 Previous Rx's Medication Instructions Recorded baclofen 10 mg tablet 10 mg PO BID #180 tabs 10/18/24 sulfamethoxazole 800 1 tab PO BID 7 days #14 tabs 10/24/24 mg-trimethoprim 160 mg tablet (Bactrim DS) Allergies Allergy/AdvReac Type Severity Reaction Status Date / Time No Known Drug Allergies Allergy Verified 10/24/24 10:07 Review of Systems <Alyssia Foster PA-C - Last Filed: 10/24/24 14:31> Review of Systems ROS Unobtainable: All systems reviewed & are unremarkable except as noted in HPI and below Patient History <Alyssia Foster PA-C - Last Filed: 10/24/24 14:31> Medical History Cervical vertebral fusion Paraplegia Social History Smoking Status: Unknown if ever smoked Smoking Status: Unknown if ever smoked alcohol intake frequency: 0-2 drinks per day Exam <Alyssia Foster PA-C - Last Filed: 10/24/24 14:31> Narrative Exam Narrative: GENERAL: 59 year old patient appears stated age. Overweight patient, in no acute distress, in electric wheelchair HEAD: Atraumatic. Normocephalic. ENT: Nose without bleeding, purulent drainage. Throat without erythema, tonsillar hypertrophy or exudate. Airway patent. NECK: Trachea midline. Cervical ROM intact. CARDIOVASCULAR: Regular rate and rhythm, systolic murmur. RESPIRATORY: ?Nonlabored respirations. ?Speaking in clear, full sentences. ?Clear to auscultation. GASTROINTESTINAL: Abdomen soft, non-tender, nondistended. Abdomen is protuberant. EXTREMITIES: No edema or joint tenderness. Urine bag on right lower extremity reveals clear/yellow urine NEURO: AOx3. ?Clear speech. ?Quadriplegic. Sensation intact from chest up only. SKIN: No rash or erythema of visible areas Initial Vital Signs Initial Vital Signs: Vital Signs Temperature 97.4 F L 10/24/24 10:07 Pulse Rate 72 10/24/24 10:07 Respiratory Rate 14 10/24/24 10:07 Blood Pressure 92/53 L 10/24/24 10:07 Pulse Oximetry 97 10/24/24 10:07 Oxygen Delivery Method Room Air 10/24/24 10:07 <Carlene Cavazos DO - Last Filed: 10/27/24 07:48> Initial Vital Signs Initial Vital Signs: Vital Signs Temperature 97.4 F L 10/24/24 10:07 Pulse Rate 72 10/24/24 10:07 Respiratory Rate 14 10/24/24 10:07 Blood Pressure 92/53 L 10/24/24 10:07 Pulse Oximetry 97 10/24/24 10:07 Oxygen Delivery Method Room Air 10/24/24 10:07 <Polo Burns MD - Last Filed: 10/29/24 10:25> Initial Vital Signs Initial Vital Signs: Vital Signs Temperature 97.4 F L 10/24/24 10:07 Pulse Rate 72 10/24/24 10:07 Respiratory Rate 14 10/24/24 10:07 Blood Pressure 92/53 L 10/24/24 10:07 Pulse Oximetry 97 10/24/24 10:07 Oxygen Delivery Method Room Air 10/24/24 10:07 Course <Alyssia Foster PA-C - Last Filed: 10/24/24 14:31> Orders Ordered: Discontinued Medications Sodium Chloride (Normal Saline 0.9%) 1,000 mls @ 1,000 mls/hr IV BOLUS ONE Stop: 10/24/24 13:31 Last Admin: 10/24/24 14:20 Dose: Not Given Documented By: LORA Trimethoprim/Sulfamethoxazole (Trimeth/Sulfa 160/800 (Ds) Tablet) 1 tab PO NOW ONE Stop: 10/24/24 14:14 Last Admin: 10/24/24 14:22 Dose: 1 tab Documented By: LORA Vital Signs Vital signs: Vital Signs - 8 hr 10/24/24 10:07 10/24/24 12:21 10/24/24 13:32 Temperature 97.4 F L 98.5 F Pulse Rate 72 70 Respiratory Rate 14 18 Blood Pressure 92/53 L 85/50 L 123/77 Pulse Oximetry 97 97 Oxygen Delivery Method Room Air Room Air 10/24/24 13:55 10/24/24 14:09 Temperature Pulse Rate 72 Respiratory Rate 20 Blood Pressure 101/65 102/62 Pulse Oximetry 98 Oxygen Delivery Method Room Air <Carlene Cavazos DO - Last Filed: 10/27/24 07:48> Orders Ordered: Discontinued Medications Sodium Chloride (Normal Saline 0.9%) 1,000 mls @ 1,000 mls/hr IV BOLUS ONE Stop: 10/24/24 13:31 Last Admin: 10/24/24 14:20 Dose: Not Given Documented By: LORA Trimethoprim/Sulfamethoxazole (Trimeth/Sulfa 160/800 (Ds) Tablet) 1 tab PO NOW ONE Stop: 10/24/24 14:14 Last Admin: 10/24/24 14:22 Dose: 1 tab Documented By: LORA Vital Signs Vital signs: Vital Signs - 8 hr 10/24/24 10:07 10/24/24 12:21 10/24/24 13:32 Temperature 97.4 F L 98.5 F Pulse Rate 72 70 Respiratory Rate 14 18 Blood Pressure 92/53 L 85/50 L 123/77 Pulse Oximetry 97 97 Oxygen Delivery Method Room Air Room Air 10/24/24 13:55 10/24/24 14:09 Temperature Pulse Rate 72 Respiratory Rate 20 Blood Pressure 101/65 102/62 Pulse Oximetry 98 Oxygen Delivery Method Room Air <Polo Burns MD - Last Filed: 10/29/24 10:25> Orders Ordered: Discontinued Medications Sodium Chloride (Normal Saline 0.9%) 1,000 mls @ 1,000 mls/hr IV BOLUS ONE Stop: 10/24/24 13:31 Last Admin: 10/24/24 14:20 Dose: Not Given Documented By: LORA Trimethoprim/Sulfamethoxazole (Trimeth/Sulfa 160/800 (Ds) Tablet) 1 tab PO NOW ONE Stop: 10/24/24 14:14 Last Admin: 10/24/24 14:22 Dose: 1 tab Documented By: LORA Vital Signs Vital signs: Vital Signs - 8 hr 10/24/24 10:07 10/24/24 12:21 10/24/24 13:32 Temperature 97.4 F L 98.5 F Pulse Rate 72 70 Respiratory Rate 14 18 Blood Pressure 92/53 L 85/50 L 123/77 Pulse Oximetry 97 97 Oxygen Delivery Method Room Air Room Air 10/24/24 13:55 10/24/24 14:09 Temperature Pulse Rate 72 Respiratory Rate 20 Blood Pressure 101/65 102/62 Pulse Oximetry 98 Oxygen Delivery Method Room Air MDM - Male Genitourinary <Alyssia Foster PA-C - Last Filed: 10/24/24 14:31> Medical Records Attestation: I reviewed the patient's medical records. Lab Data 10/24/24 13:00 10/24/24 13:00 Labs: Lab Results 10/24/24 10/24/24 Range/Units 10:28 13:00 WBC 8.1 (4.5-11.0) X10^3/uL RBC 5.05 (4.5-5.9) X10^6/uL Hgb 15.1 (13.5-17.5) g/dL Hct 43.6 (41-53) % MCV 86.2 (80-100) fL MCH 29.8 (26-34) PG MCHC 34.6 (30-36) % RDW 14.3 (11.6-14.8) % Plt Count 210 (150-400) X10^3/uL Neut % (Auto) 60.1 (50-75) % Lymph % (Auto) 27.0 (25-40) % Petroleum % (Auto) 7.7 (3-14) % Eos % (Auto) 4.0 (2-4) % Baso % (Auto) 1.2 (0-2) % Neut # (Auto) 4900 (3893-0172) /uL Lymph # (Auto) 2200 (9263-0418) /uL Petroleum # (Auto) 600 (0-900) /uL Eos # (Auto) 300 (0-450) /uL Baso # (Auto) 100 (0-100) /uL Sodium 133 L (137-145) mmol/L Potassium 4.5 (3.4-5.1) mmol/L Chloride 100 (98-107) mmol/L Carbon Dioxide 26 (22-32) mmol/L BUN 17 (9-20) mg/dL Creatinine 0.32 L (0.66-1.25) mg/dL Estimated GFR > 60 (>60) mL/min BUN/Creatinine Ratio 53.1 H (6-22) Glucose 101 H (70-99) mg/dL Lactate 1.0 (0.7-2.1) mmol/L Calcium 9.1 (8.4-10.2) mg/dL Total Bilirubin 0.8 (0.2-1.3) mg/dL AST 40 (17-59) IU/L ALT 25 (<50) IU/L Alkaline Phosphatase 26 L (38-126) U/L Total Protein 7.1 (6.3-8.2) g/dL Albumin 4.0 (3.5-5.0) g/dL Globulin 3.1 (1.7-4.1) g/dL Albumin/Globulin Ratio 1.3 (1.0-2.8) Lipase 48 (23-300) U/L Urine Color Yellow Urine Appearance Sl cloudy Urine pH 6.0 (4.5-8.0) Ur Specific [place] 1.025 (1.000-1.035) Urine Protein 2+ H (Negative) Urine Glucose (UA) Negative (Negative) g/dL Urine Ketones Negative (NEGATIVE) Urine Occult Blood 3+ H (Negative) Urine Nitrate Positive H (Negative) Urine Bilirubin Negative (NEGATIVE) Urine Urobilinogen 0.2 (0.2) E.U./dL Ur Leukocyte Esterase 2+ H (NEGATIVE) Urine RBC 10-30/hpf H (0-5/HPF) Urine WBC 10-30/hpf H (0-5/HPF) Ur Squamous Epith Cells None seen (0-5/HPF) Urine Bacteria Many (>30) H (None) Ur Culture Indicated? 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 Differential diagnosis includes but is not limited to urinary tract infection, pyelonephritis, nephrolithiasis, infected nephrolithiasis, etc. On exam patient is in no acute distress, nontoxic appearing, vital signs appropriate except for low blood pressure. Urinalysis obtained in triage revealing bacteria, RBCs, WBCs, nitrite positive, occult blood. Consistent with urinary tract infection however because patient has quadriplegia, unable to feel pain in his abdomen and does have a history of recurrent kidney stones, we will obtain labs, lactate, CT KUB to rule out infected stone. Labs reveal normal WBC count 8.1, hemoglobin 15.1, hematocrit 43.6. Sodium very slightly decreased at 133 with normal potassium 4.5, BUN 17 and creatinine 0.32. Glucose 101. Lactate normal, 1.0. LFTs normal. CT scan reveals no obstructing stones or hydronephrosis, there is unchanged parents of right pelvocaliectasis with your earlier the full thickening. Patient's blood pressure improved during ED stay without medical intervention. We will treat with Bactrim b.i.d. x7 days for urinary tract infection, most recent urine culture I have on file from 2019 was susceptible to Bactrim and patient has no issues with the medication. Advised prompt follow up with his urologist, discussed strict ED return precautions. Patient his caregiver verbalized understanding of all information agreeable to plan. He is stable for discharge home, 1st dose of antibiotic given in the ED. <Carlene Noreen Cavazos, DO - Last Filed: 10/27/24 07:48> Lab Data Labs: Lab Results 10/24/24 10/24/24 Range/Units 10:28 13:00 WBC 8.1 (4.5-11.0) X10^3/uL RBC 5.05 (4.5-5.9) X10^6/uL Hgb 15.1 (13.5-17.5) g/dL Hct 43.6 (41-53) % MCV 86.2 (80-100) fL MCH 29.8 (26-34) PG MCHC 34.6 (30-36) % RDW 14.3 (11.6-14.8) % Plt Count 210 (150-400) X10^3/uL Neut % (Auto) 60.1 (50-75) % Lymph % (Auto) 27.0 (25-40) % Petroleum % (Auto) 7.7 (3-14) % Eos % (Auto) 4.0 (2-4) % Baso % (Auto) 1.2 (0-2) % Neut # (Auto) 4900 (5852-7969) /uL Lymph # (Auto) 2200 (1545-8686) /uL Petroleum # (Auto) 600 (0-900) /uL Eos # (Auto) 300 (0-450) /uL Baso # (Auto) 100 (0-100) /uL Sodium 133 L (137-145) mmol/L Potassium 4.5 (3.4-5.1) mmol/L Chloride 100 (98-107) mmol/L Carbon Dioxide 26 (22-32) mmol/L BUN 17 (9-20) mg/dL Creatinine 0.32 L (0.66-1.25) mg/dL Estimated GFR > 60 (>60) mL/min BUN/Creatinine Ratio 53.1 H (6-22) Glucose 101 H (70-99) mg/dL Lactate 1.0 (0.7-2.1) mmol/L Calcium 9.1 (8.4-10.2) mg/dL Total Bilirubin 0.8 (0.2-1.3) mg/dL AST 40 (17-59) IU/L ALT 25 (<50) IU/L Alkaline Phosphatase 26 L (38-126) U/L Total Protein 7.1 (6.3-8.2) g/dL Albumin 4.0 (3.5-5.0) g/dL Globulin 3.1 (1.7-4.1) g/dL Albumin/Globulin Ratio 1.3 (1.0-2.8) Lipase 48 (23-300) U/L Urine Color Yellow Urine Appearance Sl cloudy Urine pH 6.0 (4.5-8.0) Ur Specific [place] 1.025 (1.000-1.035) Urine Protein 2+ H (Negative) Urine Glucose (UA) Negative (Negative) g/dL Urine Ketones Negative (NEGATIVE) Urine Occult Blood 3+ H (Negative) Urine Nitrate Positive H (Negative) Urine Bilirubin Negative (NEGATIVE) Urine Urobilinogen 0.2 (0.2) E.U./dL Ur Leukocyte Esterase 2+ H (NEGATIVE) Urine RBC 10-30/hpf H (0-5/HPF) Urine WBC 10-30/hpf H (0-5/HPF) Ur Squamous Epith Cells None seen (0-5/HPF) Urine Bacteria Many (>30) H (None) Ur Culture Indicated? 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 Differential diagnosis includes but is not limited to urinary tract infection, pyelonephritis, nephrolithiasis, infected nephrolithiasis, etc. On exam patient is in no acute distress, nontoxic appearing, vital signs appropriate except for low blood pressure. Urinalysis obtained in triage revealing bacteria, RBCs, WBCs, nitrite positive, occult blood. Consistent with urinary tract infection however because patient has quadriplegia, unable to feel pain in his abdomen and does have a history of recurrent kidney stones, we will obtain labs, lactate, CT KUB to rule out infected stone. Labs reveal normal WBC count 8.1, hemoglobin 15.1, hematocrit 43.6. Sodium very slightly decreased at 133 with normal potassium 4.5, BUN 17 and creatinine 0.32. Glucose 101. Lactate normal, 1.0. LFTs normal. CT scan reveals no obstructing stones or hydronephrosis, there is unchanged parents of right pelvocaliectasis with your earlier the full thickening. Patient's blood pressure improved during ED stay without medical intervention. We will treat with Bactrim b.i.d. x7 days for urinary tract infection, most recent urine culture I have on file from 2019 was susceptible to Bactrim and patient has no issues with the medication. Advised prompt follow up with his urologist, discussed strict ED return precautions. Patient his caregiver verbalized understanding of all information agreeable to plan. He is stable for discharge home, 1st dose of antibiotic given in the ED. patient's urine culture resulted Klebsiella pneumoniae greater than 100,000 CFU sensitive to Bactrim patient was discharged home on, no additional changes. <Polo Burns MD - Last Filed: 10/29/24 10:25> Lab Data Labs: Lab Results 10/24/24 10/24/24 Range/Units 10:28 13:00 WBC 8.1 (4.5-11.0) X10^3/uL RBC 5.05 (4.5-5.9) X10^6/uL Hgb 15.1 (13.5-17.5) g/dL Hct 43.6 (41-53) % MCV 86.2 (80-100) fL MCH 29.8 (26-34) PG MCHC 34.6 (30-36) % RDW 14.3 (11.6-14.8) % Plt Count 210 (150-400) X10^3/uL Neut % (Auto) 60.1 (50-75) % Lymph % (Auto) 27.0 (25-40) % Petroleum % (Auto) 7.7 (3-14) % Eos % (Auto) 4.0 (2-4) % Baso % (Auto) 1.2 (0-2) % Neut # (Auto) 4900 (6572-8717) /uL Lymph # (Auto) 2200 (6861-0782) /uL Petroleum # (Auto) 600 (0-900) /uL Eos # (Auto) 300 (0-450) /uL Baso # (Auto) 100 (0-100) /uL Sodium 133 L (137-145) mmol/L Potassium 4.5 (3.4-5.1) mmol/L Chloride 100 (98-107) mmol/L Carbon Dioxide 26 (22-32) mmol/L BUN 17 (9-20) mg/dL Creatinine 0.32 L (0.66-1.25) mg/dL Estimated GFR > 60 (>60) mL/min BUN/Creatinine Ratio 53.1 H (6-22) Glucose 101 H (70-99) mg/dL Lactate 1.0 (0.7-2.1) mmol/L Calcium 9.1 (8.4-10.2) mg/dL Total Bilirubin 0.8 (0.2-1.3) mg/dL AST 40 (17-59) IU/L ALT 25 (<50) IU/L Alkaline Phosphatase 26 L (38-126) U/L Total Protein 7.1 (6.3-8.2) g/dL Albumin 4.0 (3.5-5.0) g/dL Globulin 3.1 (1.7-4.1) g/dL Albumin/Globulin Ratio 1.3 (1.0-2.8) Lipase 48 (23-300) U/L Urine Color Yellow Urine Appearance Sl cloudy Urine pH 6.0 (4.5-8.0) Ur Specific [place] 1.025 (1.000-1.035) Urine Protein 2+ H (Negative) Urine Glucose (UA) Negative (Negative) g/dL Urine Ketones Negative (NEGATIVE) Urine Occult Blood 3+ H (Negative) Urine Nitrate Positive H (Negative) Urine Bilirubin Negative (NEGATIVE) Urine Urobilinogen 0.2 (0.2) E.U./dL Ur Leukocyte Esterase 2+ H (NEGATIVE) Urine RBC 10-30/hpf H (0-5/HPF) Urine WBC 10-30/hpf H (0-5/HPF) Ur Squamous Epith Cells None seen (0-5/HPF) Urine Bacteria Many (>30) H (None) Ur Culture Indicated? Specimen cultured Vol Urine Centrifuged 10ml (spun) Discharge Plan Departure Patient Disposition: Home Clinical Impression: Chronic indwelling Holden catheter Urinary tract infection Qualifiers: Urinary tract infection type: site unspecified Hematuria presence: with hematuria Qualified Code(s): N39.0 - Urinary tract infection, site not specified Instructions: DI for Urinary Tract Infection (UTI) Activity Restrictions/Additional Instructions: Dear Mr. Seay, Thank you for coming to the emergency department. Today we are treating you for urinary tract infection. Please complete the full course of antibiotics. A urine culture is currently in the lab and if it grows bacteria that requires a different antibiotic, you will be called and we will send you the antibiotic. Please follow up with your urologist as scheduled but return to the ER immediately if you develop fevers, pain, vomiting or any other concerns. Your lab work and imaging was overall reassuring and at this time you do not have a kidney stone. Please follow up with your primary care doctor within the next 2-3 days for ER follow-up. (If you do not have a PCP you can call [phone]. ?to schedule an appointment with an [facility] Primary Care Provider) IF YOU DEVELOP ANY NEW OR WORSENING SYMPTOMS, RETURN TO THE ER! Please read the attached instructions, they highlight more specific treatments and interventions for you at home. Thank you for letting me participate in your care, Alyssia Foster PA-C Prescriptions: New sulfamethoxazole-trimethoprim [Bactrim DS] 800-160 mg tablet 1 tab PO BID 7 Days Qty: 14 0RF No Action cranberry 500 mg capsule 1,000 mg PO BID Rx Instructions: administer with meals baclofen 10 mg tablet 10 mg PO BID Qty: 180 0RF docusate sodium 250 mg Capsule 250 mg PO BID Rx Instructions: takes breakfast & lunch sennosides [senna] 8.6 mg tablet 17.2 mg PO BID Rx Instructions: takes @ breakfast & dinner trospium 60 mg capsule,extended release 24hr 60 mg PO DAILY PRN (Reason: Bladder Spasms) bisacodyl 5 mg tablet,delayed release (DR/EC) 5 - 10 mg PO QPM Patient Comments: TK 2 TS PO HS Rx Instructions: usually takes @ dinner Referrals: Brian Dorado MD [Primary Care Provider] - Stand Alone Forms: Patient Portal/API/Survey ED Sign-out <Polo Burns MD - Last Filed: 10/29/24 10:25> Cosign ED Attending Cosignature Attestation: I was immediately available in the department for consultation. ?This documentation has been reviewed and I agree with assessment and plan. Supervised by Polo Burns MD
--- NOTE | 2024-10-24 12:53 | DI.CT.S_ITS ---
PROCEDURE: CT KIDNEY URETER BLADDER (KUB) INDICATIONS: UTI; hx recurrent stones; quadriplegic; baugh TECHNIQUE: Axial sections were acquired from the lung bases to the pubic symphysis. Coronal and sagittal reformats were performed. For radiation dose reduction, the following was used: automated exposure control, adjustment of mA and/or kV according to patient size. COMPARISON: [facility], CT, CT ABDOMEN PELVIS WO CON, 03/07/2023, 12:04. FINDINGS: Image quality: Diagnostic. Lower Chest: No significant findings. URINARY: Right Kidney: No stones. Unchanged pelvocaliectasis stable compared to prior exams. Unchanged urothelial thickening of the pelvis. Right Ureter: No hydroureter. Left Kidney: No stones or hydronephrosis. Left Ureter: No hydroureter. Bladder: Bladder is decompressed with a Baugh catheter. ABDOMEN: Liver: Steatosis. Subcentimeter low-attenuation foci too small to definitively characterize are unchanged. Gallbladder: Minimal punctate hyperdensities without wall thickening. Biliary ducts: No biliary dilation. Pancreas: No ductal dilation. Spleen: Size is within normal limits. Punctate areas of low attenuation unchanged. Adrenal Glands: No adrenal nodules. Stomach and Bowel: Normal colonic caliber, without significant wall thickening. Peritoneum: No abnormal intraperitoneal fluid. No free air. Ventral Wall: No hernia. Abdominal Nodes: No enlarged retroperitoneal or mesenteric lymph nodes. Vessels: Aorta and inferior vena cava are normal in size. PELVIS: Pelvic Organs: Unremarkable. Pelvic Nodes: Unremarkable. Miscellaneous: No inguinal hernias are seen. Bones: Multilevel degenerative changes. Unchanged superior endplate deformity at L1. IMPRESSION: No obstructing stones or hydronephrosis. Unchanged appearance of right pelvocaliectasis with urothelial thickening. Dictated by: Kathy Portillo M.D. on 10/24/2024 at 13:26 Approved by: Kathy Portillo M.D. on 10/24/2024 at 13:32
[2024-10-24 13:12] LABS: Add Manual Diff / Slide Review NO; Basophils Absolute Auto 100 /uL (0-100); Basophils Percent Auto 1.2 % (0-2); Eosinophils Absolute Auto 300 /uL (0-450); Hematocrit 43.6 % (41-53); Hemoglobin 15.1 g/dL (13.5-17.5); Lymphocytes Absolute Auto 2200 /uL (1100-4500); Mean Corpuscular HGB Conc 34.6 % (30-36); Mean Corpuscular Hemoglobin 29.8 PG (26-34); Mean Corpuscular Volume 86.2 fL (80-100); Monocytes Absolute Auto 600 /uL (0-900); Monocytes Percent Auto 7.7 % (3-14); Neutrophils Absolute Auto 4900 /uL (1500-7000); Neutrophils Percent Auto 60.1 % (50-75); Platelet Count 210 X10^3/uL (150-400); Red Blood Cell Count 5.05 X10^6/uL (4.5-5.9); Red Cell Distribution Width 14.3 % (11.6-14.8); White Blood Cell Count 8.1 X10^3/uL (4.5-11.0)
[2024-10-24 13:24] LABS: Alanine Aminotransferase 25 IU/L (<50); Albumin Globulin Ratio 1.3 (1.0-2.8); Alkaline Phosphatase 26 U/L (38-126); Aspartate Aminotransferase 40 IU/L (17-59); BUN Creatinine Ratio 53.1 (6-22); Bilirubin Total 0.8 mg/dL (0.2-1.3); Blood Urea Nitrogen 17 mg/dL (9-20); Calcium 9.1 mg/dL (8.4-10.2); Carbon Dioxide 26 mmol/L (22-32); Chloride 100 mmol/L (98-107); Estimated Glomerular Filt Rate > 60 mL/min (>60); Globulin 3.1 g/dL (1.7-4.1); Glucose 101 mg/dL (70-99); Lipase 48 U/L (23-300); Potassium 4.5 mmol/L (3.4-5.1); Sodium 133 mmol/L (137-145); Total Protein 7.1 g/dL (6.3-8.2)
[2024-10-24 13:26] LABS: HEMOLYSIS 128 (0-50)
[2024-10-24 13:32] VITALS: BP 123/77
[2024-10-24 13:55] VITALS: BP 101/65
[2024-10-24 14:09] VITALS: BP 102/62; PULSE 72; RESP 20; O2SAT 98
[2024-10-24] MEDS: TRIMETH/SULFA 160/800 (DS) TABLET 1 TAB PO (14:22)
== END 2024-10-24 14:29 | disposition home or self-care (01) ==
PROVIDERS: Emergency Medicine; Emergency Provider Physician Assistant; PCP Family Medicine
DX: N39.0 Urinary tract infection, site not specified (principal); Z97.8 Presence of other specified devices; Z87.442 Personal history of urinary calculi
CPT/HCPCS: 74176; 80053; 81001; 83605; 83690; 85025; 87040; 87077; 87086; 87186; 99283; 99284

== ENCOUNTER → 2025-05-01 13:43 | Outpatient (CLI) | payer BC, SELFPAY ==
--- NOTE | 2025-05-01 13:45 | DI.ECHO.S_ITS ---
[facility] : : [id number] : : [place] [address] : : [id number] : : Phone: [phone] Echocardiogram Report + + :Name: RAUL PORTILLO Study Date: 05/01/2025 Height: 72 in : :[facility] ReadingLocation: Weight: 260 lb : : Gender: Male BSA: 2.4 m2 : :: 1965 Age: 59 yrs BP: 134/81 mmHg: :Reason For Study: Aortic valve stenosis : :Ordering Physician: MILAGROS, : :KARISSA Wilson Performed By: Leslie Zamora : :Referring: KARISSA CHAU : + + Interpretation Summary There is mild-moderate concentric left ventricular hypertrophy. The ejection fraction is estimated to be 60-65%. Diastolic function could not be accurately assessed due to unobtainable data. The right ventricle grossly appears normal in size with probable normal systolic function. There is moderate aortic stenosis. Pulmonary artery pressures cannot be estimated because of the lack of a measurable TR jet velocity. The ascending aorta is mild-moderately enlarged. Compared to the prior study 06/03/2024, the aortic valve gradient has increased. Procedure: A two-dimensional transthoracic echocardiogram with color flow and Doppler was performed. The study quality was technically limited. Comparison is made with the echocardiogram of 06-03-24. The heart rate ranged between 85-88 bpm during the study. Left Ventricle: There is mild-moderate concentric left ventricular hypertrophy. The ejection fraction is estimated to be 60-65%. Diastolic function could not be accurately assessed due to unobtainable data. Right Ventricle: The right ventricle grossly appears normal in size with probable normal systolic function. Atria: The left atrium grossly appears normal in size. The right atrium grossly appears normal in size. The interatrial septum is not well visualized. Mitral Valve: The mitral valve leaflets appear borderline thickened. There is trace mitral regurgitation. Aortic Valve: The aortic valve is severely calcified. The peak aortic velocity is 3.6 m/sec. The aortic valve mean gradient is 33 mmHg. The calculated aortic valve area is 1.1 cm2. There is moderate aortic stenosis. No aortic regurgitation is present. Tricuspid Valve: The tricuspid valve leaflets are thin and pliable. There is a trace or physiologic amount of tricuspid regurgitation. Pulmonary artery pressures cannot be estimated because of the lack of a measurable TR jet velocity. Pulmonic Valve: The pulmonic valve is not well seen, but is grossly normal. There is a trace or physiologic amount of pulmonic regurgitation. Great Vessels: The aortic root is moderately dilated. The ascending aorta is mild-moderately enlarged. The aortic arch is normal in size. The inferior vena cava was not visualized. Pericardium/ Pleura There is no pericardial effusion. There is no pleural effusion. MMode/2D Measurements & Calculations LVIDd: 4.6 cm LVOT diam: 2.3 cm LVIDs: 2.3 cm Ao root diam: 4.4 cm FS: 50.4 % asc Aorta Diam: 4.3 cm EPSS: 0.34 cm Ao Arch Diam (Prox Trans): 2.6 cm IVSd: 1.5 cm LVPWd: 1.1 cm LV ross. diameter/BSA (cm/m^2): 1.9 LV sys. diameter/BSA (cm/m^2): 0.96 KOFI (plan): 2.4 cm2 Doppler Measurements & Calculations Ao V2 max: 358.8 cm/sec LVOT Max Aren: 100.8 cm/sec Ao V2 mean: 268.7 cm/sec LV V1 max P.1 mmHg Ao max P.6 mmHg LV V1 VTI: 20.8 cm Ao mean P.9 mmHg KOFI(I,D): 1.7 cm2 Ao V2 VTI: 51.6 cm KOFI(V,D): 1.2 cm2 sev ratio: 0.40 KOFI indexed to BSA (cm^2/m^2): 0.70 MV E max aren: 75.8 cm/sec PA V2 max: 96.0 cm/sec MV A max aren: 90.5 cm/sec PA V2 mean: 63.2 cm/sec MV E/A: 0.84 PA mean P.8 mmHg MV dec time: 0.29 sec PA pr(Accel): 12.2 mmHg SV(LVOT): 86.0 ml Reading Physician:[id number] PM
== END ==
LOC: ECHO 13:44
PROVIDERS: PCP Physician Assistant Medical; Referring Provider Internal Medicine Cardiovascular Disease; Visit Provider Internal Medicine Cardiovascular Disease
DX: I35.0 Nonrheumatic aortic (valve) stenosis (principal); I77.810 Thoracic aortic ectasia; I77.89 Other specified disorders of arteries and arterioles
CPT/HCPCS: 93306